=== PATIENT | male | born 1995 | race Caucasian/White ===

== ENCOUNTER 2021-01-25 10:24 | Emergency (ER) | payer BC, SELFPAY ==
--- NOTE | ~2021-01-25 | XR_ITS ---
EXAMINATION: XR chest 2V DATE: 01/25/2021 12:53 INDICATION: Cough and congestion. TECHNIQUE: Frontal and lateral views of the chest were obtained. COMPARISON: None. FINDINGS: The chest demonstrates clear lungs without pneumonia, pleural effusion, or pneumothorax. Th e heart size is normal. IMPRESSION: 1. No acute cardiopulmonary disease. Reviewed, dictated and finalized at location B.
[2021-01-25 10:37] VITALS: BP 152/110; PULSE 97; RESP 16; TEMP 35.8; O2SAT 99
--- NOTE | 2021-01-25 11:02 | ED.URI ---
HPI - URI/Sore Throat General Chief Complaint: Upper Respiratory Infection Stated Complaint: multiple complaints Time Seen by Provider: 01/25/21 11:02 Source: patient Mode of arrival: ambulatory Limitations: no limitations History of Present Illness HPI Narrative: Patient is a 25-year-old male with a history of asthma who presents for evaluation of shortness of breath. Patient states he has been wheezing and coughing over the past 24 to 48 hours. He states it feels typical to prior asthma exacerbations. He denies fever, chills, rhinorrhea or sore throat. He reports mild, dry cough. No loss of sense of taste or smell. No abdominal pain or diarrhea. No chest pain. No history of Covid. No recent sick exposures. Patient does not currently have any prescriptions for inhalers. Related Data Allergies Allergy/AdvReac Type Severity Reaction Status Date / Time Wasp Allergy Mild LOCALIZED Uncoded 01/25/21 10:53 SWELLING Review of Systems Review of Systems: Narrative: CONSTITUTIONAL: Denies fever, chills, or sweats. EYES: Denies visual changes, redness, or discharge. ENT: Denies rhinorrhea, congestion, sore throat or otalgia CARDIOVASCULAR: Denies chest pain, palpitations, or edema. RESPIRATORY: Reports dry cough and shortness of breath, reports wheezing GASTROINTESTINAL: Denies abdominal pain, nausea, vomiting, or diarrhea. GENITOURINARY: Denies dysuria or hematuria. SKIN: Denies rash or itching. MUSCULOSKELETAL: Denies back pain, joint pain, or myalgia. NEUROLOGIC: Denies headache, numbness, or weakness. [facility] Social History Social History (Updated 01/25/21 @ 12:55 by Kathleen Momin MD) Smoking status: Current every day smoker Tobacco type: cigarettes Substance use: never Gender identity (if verbalized by the patient): Male Exam Narrative: Exam Narrative: GENERAL: Awake, alert, conversant HEAD: Normocephalic, atraumatic. EYES: PERRLA and EOMI. ENT: Nares clear, no rhinorrhea or epistaxis. Mucous membranes moist. NECK: Supple. CHEST: No respiratory distress, breathing even and non labored, expiratory wheezing bilateral middle and lower lobes, mildly coarse breath sounds, no crackles HEART: Regular rate, sinus rhythm ABDOMEN:Non distended, non tender EXTREMITIES: Normal range of motion. No edema. SKIN: Warm, dry, no rash. NEURO:No focal deficits. Alert and oriented x3 Course Vital Signs Vital signs: Vital Signs Temperature 35.8 C L 01/25/21 10:37 Pulse Rate 97 01/25/21 10:37 Respiratory Rate 16 01/25/21 10:37 Blood Pressure 152/110 H 01/25/21 10:37 Pulse Oximetry 99 01/25/21 10:37 Temperature 35.8 C L 01/25/21 10:37 Pulse Rate 97 01/25/21 10:37 Respiratory Rate 16 01/25/21 10:37 Blood Pressure 152/110 H 01/25/21 10:37 Pulse Oximetry 99 01/25/21 10:37 MDM - URI/Sore Throat MDM Narrative Medical decision making narrative: Patient presented for evaluation of cough, wheezing. At the time of assessment, ABCs are intact and vital signs are stable. Patient does have expiratory wheezing on exam without increased work of breathing. Strep swab is negative. Covid swab pending. Chest x-ray shows no acute cardiopulmonary abnormality and no evidence of pneumonia. Patient will be given inhaler, given a dose of steroids here. Discharged home advised to use inhaler as scheduled as well as scheduled steroids to help with wheezing. Likely viral illness precipitating asthma exacerbation. No need for antibiotics given no pneumonia or other infectious type symptoms. Differential Diagnosis Differential diagnosis: Likely upper respiratory infection, sinusitis, viral infection and other (Asthma exacerbation) Medical Records Attestation: I reviewed the patient's medical records. Lab Data Labs: Strep Screen Presumptive Negative *(Reference Range: Negative)* Imaging Data Radiologist's impression: ITS Impressions Chest X-
[2021-01-25] MEDS: predniSONE 20 MG TABLET 40 MG PO (13:41)
[2021-01-25] MEDS: ALBUTEROL SULFATE (*SP) AEROSOL 1 PUFF 2 PUFF INHALATION (14:04)
[2021-01-25 14:10] VITALS: BP 135/86; PULSE 100; RESP 16; O2SAT 98
[2021-01-25 23:43] LABS: SARS-CoV-2 RNA PCR Negative
== END 2021-01-25 14:49 | disposition home or self-care (01) ==
PROVIDERS: Emergency Provider Emergency Medicine; PCP Family Medicine
DX: J06.9 Acute upper respiratory infection, unspecified (principal); J45.909 Unspecified asthma, uncomplicated; Z20.822 Contact with and (suspected) exposure to COVID-19; F17.210 Nicotine dependence, cigarettes, uncomplicated
CPT/HCPCS: 71046; 87081; 87880; 99283; A9270; C9803; J7512; U0003; U0005

== ENCOUNTER 2021-01-26 19:05 | Emergency (ER) | payer BC, SELFPAY ==
[2021-01-26 19:14] VITALS: BP 170/74; PULSE 89; RESP 18; TEMP 36.1; O2SAT 100
[2021-01-26] MEDS: CYCLOBENZAPRINE HCL 10 MG TABLET PO (19:35)
--- NOTE | 2021-01-26 19:41 | ED.GENADULT ---
HPI - General Adult General Chief complaint: Back Pain/Injury Stated complaint: lower back pain Time Seen by Provider: 01/26/21 19:23 Source: RN notes reviewed History of Present Illness HPI narrative: Patient presents to emergency department from home for back pain. Patient states that last night he slept on his couch which he states is not in great shape he states that he has had lower back pain since that time that is worse with movement and will catch on him with a spasming pain in his back he denies having any fevers or chills chest pain shortness of breath abdominal pain nausea or vomiting, numbness or tingling in extremities bowel or bladder incontinence or any other symptoms states he took ibuprofen 30 minutes prior to arrival Related Data Allergies Allergy/AdvReac Type Severity Reaction Status Date / Time Wasp Allergy Mild LOCALIZED Uncoded 01/26/21 19:17 SWELLING Review of Systems Review of Systems: Narrative: Gen.: Denies fevers or chills Eyes: Denies eye pain or visual change ENT: Denies congestion Respiratory: Denies shortness of breath or cough CV: Denies chest pain or palpitations GI: Denies abdominal pain nausea, emesis or diarrhea denies burning, urgency, frequency or hematuria denies incontinence Musculoskeletal: See HPI Neuro: Denies numbness, tingling, weakness or focal weakness Skin: Denies rash Except as documented, all other systems reviewed and negative [facility] Past Medical History Medical History (Updated 01/26/21 @ 19:44 by Pankaj Gordon DO) Asthma Social History Social History Smoking status: Current every day smoker Tobacco type: cigarettes Substance use: never Gender identity (if verbalized by the patient): Male Sexual Orientation (if Verbalized by the Patient): Straight or Heterosexual Exam Narrative: Exam Narrative: APPEARANCE: No acute distress, nontoxic, resting in bed Eyes: EOMI HEENT: Normocephalic, atraumatic, CV: Regular rate and rhythm without murmur RESPIRATORY: No respiratory distress. Clear to auscultation bilaterally. Abdomen: Soft and nontender, no rebound or guarding MUSCULOSKELETAl: Moves all extremities, no clubbing cyanosis or edema Back: No midline lumbar tenderness to palpation or step-off, tender to palpation over bilateral paravertebral muscles L3-5 , pain increased with forward flexion NEURO: Awake and alert. Following commands, speech normal, no focal deficits, muscle strength 5 out of 5 bilateral lower extremities, bilateral patellar reflex 2+ SKIN:: Warm, dry. Normal Color no rash or lesions Course Course Emergency Course: Discussed with patient results of workup and diagnosis. Discussed need for follow-up with primary care, proper use of medication, and reasons to return to the emergency department. Patient understands and agrees to current treatment plan Vital Signs Vital signs: Vital Signs Temperature 97.0 F L 01/26/21 19:14 Pulse Rate 89 01/26/21 19:14 Respiratory Rate 18 01/26/21 19:14 Blood Pressure 170/74 H 01/26/21 19:14 Pulse Oximetry 100 01/26/21 19:14 Temperature 97.0 F L 01/26/21 19:14 Pulse Rate 89 01/26/21 19:14 Respiratory Rate 18 01/26/21 19:14 Blood Pressure 170/74 H 01/26/21 19:14 Pulse Oximetry 100 01/26/21 19:14 Medical Decision Making MDM Narrative Medical decision making narrative: Patient?s pain is positional and localized to back without signs of cord compression or cauda equina. Normal nuerologic exams. No fever noted and no significant risk factors for osteomyelitis or spinal epidural abscess. No symptoms or signs to suggest pain is referred from abdominal or source. There are no pulsatile masses to exam. Patient ambulates with a steady gait and is felt to be up reasonable candidate for continued outpatient management Vital Signs Vital Signs: Vital Signs Temperature 97.0 F L 01/26/21 19:14 Pulse Rate 89 01/26
[2021-01-26 19:50] VITALS: BP 132/76; PULSE 78; RESP 18; O2SAT 99
== END 2021-01-26 19:51 | disposition home or self-care (01) ==
PROVIDERS: Emergency Provider Emergency Medicine; PCP Emergency Medicine
DX: M54.5 Low back pain (principal); J45.909 Unspecified asthma, uncomplicated; F17.210 Nicotine dependence, cigarettes, uncomplicated
CPT/HCPCS: 99283; A9270

== ENCOUNTER 2021-01-28 16:37 | Emergency (ER) | payer BC, SELFPAY ==
[2021-01-28 17:41] VITALS: BP 142/80; PULSE 88; RESP 16; TEMP 36.6; O2SAT 100
--- NOTE | 2021-01-28 19:08 | PC.NURSE ---
no answer when called for room at 1848 and 1900. was seen in triage
== END 2021-01-28 19:00 | disposition left against medical advice (07) ==
PROVIDERS: PCP Emergency Medicine
DX: M54.9 Dorsalgia, unspecified (principal)
CPT/HCPCS: 99199

== ENCOUNTER 2021-02-09 21:53 | Emergency (ER) | payer OTHER, BC, SELFPAY ==
--- NOTE | ~2021-02-09 | XR_ITS ---
EXAMINATION: XR finger 1st LT min 2V DATE: 02/09/2021 22:36 INDICATION: Left thumb foreign body. TECHNIQUE: 3 views of left thumb were obtained. COMPARISON: Left wrist radiographs 07/03/2006 FINDINGS: Bone alignment is normal. No fracture. Joint spaces are normal. There is a thin 3 mm radiop aque foreign body at the palmar aspect of the thumb. IMPRESSION: 1. Thin 3 mm radiopaque foreign body at the palmar aspect of the thumb. Reviewed, dictated and finalized at location A.
[2021-02-09 22:20] VITALS: BP 145/83; PULSE 76; RESP 18; TEMP 36.2; O2SAT 100
--- NOTE | 2021-02-09 23:58 | ED.UPPEXIN ---
HPI - Extremity Injury (Upper) General Chief Complaint: Extremity Injury, Upper Stated Complaint: metal piece in thumb, hand pain Time Seen by Provider: 02/09/21 22:26 History of Present Illness HPI narrative: Patient is a 25-year-old male who presents ER with left thumb pain. 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 Reports there is a small splinter in there that he cannot remove. Went home and today his thumb/hand was more swollen and has increased difficulty making a fist. No redness or drainage. No fevers or chills or sweats. Related Data Allergies Allergy/AdvReac Type Severity Reaction Status Date / Time Wasp Allergy Mild LOCALIZED Uncoded 02/09/21 22:23 SWELLING Review of Systems Review of Systems: All systems reviewed & are unremarkable except as noted in HPI and below Constitutional: Constitutional: Denies chills, Denies fever(s) and Denies weakness Musculoskeletal: Comments: Thumb pain and swelling Neurologic: Denies focal weakness and Denies numbness PMFSH Past Medical History Medical History (Updated 02/09/21 @ 23:59 by Cipriano Cobian MD) Asthma Social History Social History Smoking status: Current every day smoker Tobacco type: cigarettes Substance use: never Gender identity (if verbalized by the patient): Male Exam Narrative: Exam Narrative: GENERAL: Well-appearing, well-nourished, and in no acute distress. HEAD: Normocephalic, atraumatic. HEART: Regular rate and rhythm. Normal peripheral pulses. EXTREMITIES: Normal range of motion. Mild swelling to the left thumb with foreign body just distal to the DIP. SKIN: Warm, dry, no rash. NEURO: Alert and oriented x3. PSYCH: Normal mood and affect. Course Course Emergency Course: When foreign body removed there is a small bead of pus. No additional infection could be squeezed of the thumb. Will place on antibiotics. Tetanus shot is up-to-date per patient. Vital Signs Vital signs: Vital Signs Temperature 97.2 F L 02/09/21 22:20 Pulse Rate 76 02/09/21 22:20 Respiratory Rate 18 02/09/21 22:20 Blood Pressure 145/83 H 02/09/21 22:20 Pulse Oximetry 100 02/09/21 22:20 Temperature 97.2 F L 02/09/21 22:20 Pulse Rate 76 02/09/21 22:20 Respiratory Rate 18 02/09/21 22:20 Blood Pressure 145/83 H 02/09/21 22:20 Pulse Oximetry 100 02/09/21 22:20 Procedures Foreign Body Removal Foreign Body #1: Foreign Body Removal Date: 02/09/21 Foreign Body Removal Time: 11:50 Site: left and other (thumb) Description of foreign body: other (metal splinter) Sedation/Analgesia: none Technique: incision made to facilitate removal Confirmed by:: direct visualization Complications: none Discharge Plan Discharge Clinical Impression: Foreign body finger, Abscess of left thumb Patient Disposition: Home, Self-Care Condition: Stable Instructions: Antibiotic Form, Abscess (ED) Additional Instructions: You had a small metal foreign body in the superficial skin of your thumb. It was removed and there was a scant amount of pus. You have been started on antibiotic to treat infection. Soak your thumb and try to express any additional pus. Return to the ER if he had red streaking up your arm, you have fever over 100.4 ?F, or you have a red swollen foot thumb that cannot bend. Prescriptions: New doxycycline monohydrate 100 mg capsule 100 mg PO BID Qty: 14 RF: 0 Follow-up/Referrals: PHYSICIAN,TRAINING REPRESENTATIVE [Primary Care Provider] - Randy Kiran MD [Physician] - 1 Week Stand Alone Forms: Work/School Release IP
[2021-02-10] MEDS: DOXYCYCLINE HYCLATE 100 MG TABLET PO (00:01)
[2021-02-10 00:04] VITALS: BP 138/84; PULSE 74; RESP 16; O2SAT 98
== END 2021-02-10 00:05 | disposition home or self-care (01) ==
PROVIDERS: Emergency Provider Emergency Medicine
DX: S60.352A Superficial foreign body of left thumb, initial encounter (principal); J45.909 Unspecified asthma, uncomplicated; F17.210 Nicotine dependence, cigarettes, uncomplicated; W45.8XXA Other foreign body or object entering through skin, initial encounter
CPT/HCPCS: 10120; 73140; 99283; A9270

== ENCOUNTER 2021-08-12 07:05 | Emergency (ER) | payer OTHER, BC, SELFPAY ==
[2021-08-12 07:11] VITALS: BP 178/106; PULSE 114; RESP 16; TEMP 36.9; O2SAT 100
--- NOTE | 2021-08-12 07:29 | ED.GENADULT ---
HPI - General Adult General Chief complaint: Upper Respiratory Infection Stated complaint: flu-work note Time Seen by Provider: 08/12/21 07:10 History of Present Illness HPI narrative: Patient is a 26-year-old male who presents to the ER in search of a work note. Patient reports he missed work the last 2 days because he had diarrhea 1 day and then he started having sinus congestion another day. Is felt some mild fatigue. No fevers or chills or sweats. No loss of taste or smell. He would also like his left big toe evaluated because he has an ingrown toenail. Toenail has been worsening over the last month. No drainage or redness. He is able to ambulate. Related Data Home Medications Medication Instructions Recorded Confirmed No Home Medications 08/12/21 08/12/21 Allergies Allergy/AdvReac Type Severity Reaction Status Date / Time No Known Allergies Allergy Verified 08/12/21 07:15 Review of Systems Review of Systems: All systems reviewed & are unremarkable except as noted in HPI and below Constitutional: Constitutional: Denies chills and Denies fever(s) ENT: Reports nasal congestion and Denies sore throat Respiratory: Respiratory: Denies cough, Denies dyspnea and Denies wheezing Gastrointestinal: Gastrointestinal: Denies abdominal pain, Reports diarrhea (Resolved), Denies nausea and Denies vomiting Musculoskeletal: Comments: Ingrown toenail left great toe. PMFSH Past Medical History Medical History (Updated 08/12/21 @ 07:40 by Cipriano Cobian MD) Asthma Social History Social History Smoking status: Current every day smoker Tobacco type: cigarettes Substance use: never Gender identity (if verbalized by the patient): Male Sexual Orientation (if Verbalized by the Patient): Straight or Heterosexual Exam Narrative: GENERAL: Well-appearing, well-nourished, and in no acute distress. HEAD: Normocephalic, atraumatic. CHEST: Clear to auscultation. No respiratory distress. HEART: Regular rate and rhythm. Normal peripheral pulses. EXTREMITIES: Normal range of motion. No edema. Ingrown toenail left great toe without drainage or abscess formation. No lymphangitic streaking. NEURO: Alert and oriented x3. PSYCH: Normal mood and affect. Course Course Emergency Course: Discussed with patient that his blood pressure is elevated and he needs to obtain a primary care physician for further evaluation. We will also give him the name of a oven unloader who can remove his ingrown toenail. Vital Signs Vital signs: Vital Signs Temperature 98.5 F 08/12/21 07:11 Pulse Rate 114 H 08/12/21 07:11 Respiratory Rate 16 08/12/21 07:11 Blood Pressure 178/106 H 08/12/21 07:11 Pulse Oximetry 100 08/12/21 07:11 Temperature 98.5 F 08/12/21 07:11 Pulse Rate 114 H 08/12/21 07:11 Respiratory Rate 16 08/12/21 07:11 Blood Pressure 178/106 H 08/12/21 07:11 Pulse Oximetry 100 08/12/21 07:11 Medical Decision Making Vital Signs Vital Signs: Vital Signs Temperature 98.5 F 08/12/21 07:11 Pulse Rate 114 H 08/12/21 07:11 Respiratory Rate 16 08/12/21 07:11 Blood Pressure 178/106 H 08/12/21 07:11 Pulse Oximetry 100 08/12/21 07:11 Temperature 98.5 F 08/12/21 07:11 Pulse Rate 114 H 08/12/21 07:11 Respiratory Rate 16 08/12/21 07:11 Blood Pressure 178/106 H 08/12/21 07:11 Pulse Oximetry 100 08/12/21 07:11 Discharge Plan Discharge Clinical Impression: Upper respiratory infection, Ingrowing toenail of left foot Patient Disposition: Home, Self-Care Condition: Stable Instructions: Ingrown Nail (ED), Cold Symptoms (ED) Additional Instructions: Return to ER if you cannot breathe, you cannot swallow, you have chest pain or shortness of breath, you have additional concerns. Follow-up with your primary care doctor in regards to an elevated blood pressure reading that you had in the ER. Additionall
== END 2021-08-12 07:47 | disposition home or self-care (01) ==
PROVIDERS: Emergency Provider Emergency Medicine
DX: J06.9 Acute upper respiratory infection, unspecified (principal); L60.0 Ingrowing nail; J45.909 Unspecified asthma, uncomplicated; F17.210 Nicotine dependence, cigarettes, uncomplicated; R03.0 Elevated blood-pressure reading, without diagnosis of hypertension
CPT/HCPCS: 99281

== ENCOUNTER 2021-12-26 05:47 | Emergency (ER) | payer BC, SELFPAY ==
[2021-12-26 05:52] VITALS: BP 178/93; PULSE 85; RESP 20; TEMP 37.1; O2SAT 100
[2021-12-26] MEDS: AMOXICILLIN/CLAVULANATE K 875-125 MG TAB 1 TABLET PO (06:18)
--- NOTE | 2021-12-26 06:22 | ED.DENTAL ---
HPI - Dental/Oral General Chief complaint: Dental/Oral Stated complaint: right upper tooth abcess Time Seen by Provider: 12/26/21 05:59 Source: patient, family and RN notes reviewed Mode of arrival: ambulatory Limitations: no limitations History of Present Illness HPI Narrative: 26-year-old male with poor dentition presents emerged department for evaluation of dental pain and right-sided facial swelling. Patient states over the course of the last few days he has had worsening pain. Patient states this morning when he woke up he did have right-sided facial swelling. Patient denies any significant pain at this time. Patient denies any difficulty breathing or swallowing. Patient does have a significant history of poor dentition. Patient does not have dental follow-up and patient does not have health insurance. Related Data Allergies Allergy/AdvReac Type Severity Reaction Status Date / Time No Known Allergies Allergy Verified 12/26/21 05:56 Review of Systems Review of Systems: CONSTITUTIONAL: Denies fever, chills, or sweats. EYES: Denies visual changes, redness, or discharge. ENT: Dental pain and facial swelling. CARDIOVASCULAR: Denies chest pain, palpitations, or edema. RESPIRATORY: Denies cough or dyspnea. GASTROINTESTINAL: Denies abdominal pain, nausea, vomiting, or diarrhea. GENITOURINARY: Denies dysuria or hematuria. SKIN: Denies rash or itching. MUSCULOSKELETAL: Denies back pain, joint pain, or myalgia. NEUROLOGIC: Denies headache, numbness, or weakness. [facility] Past Medical History Medical History (Updated 12/26/21 @ 06:18 by Calvin Thompson MD) Asthma Social History Social History Smoking status: Current every day smoker Tobacco type: cigarettes Substance use: never Gender identity (if verbalized by the patient): Male Sexual Orientation (if Verbalized by the Patient): Straight or Heterosexual Exam Narrative: APPEARANCE: Well appearing, no pain, no distress, well-nourished. HEAD: normocephalic, atraumatic. Right-sided facial swelling EYES: PERRLA/EOMI, conjunctivae clear. NOSE: Normal no drainage EARS:TMS clear with good light reflex. THROAT: Pharynx clear, no exudate. No visualized abscess. Poor dentition NECK: Supple. No adenopathy, no masses. RESPIRATORY: Airway patent, respirations nonlabored. Clear to auscultation bilaterally, no rales, rhonchi, wheezing. CARDIOVASCULAR: Regular rate and rhythm without murmurs rubs or gallops. Course Course Emergency Course: Patient was started on antibiotics in the ED. Patient was discharged home with Augmentin. Patient was given information on possible dental follow-up options including esmer. Patient and family were comfortable with the plan for discharge and close follow-up. Vital Signs Vital signs: Vital Signs Temperature 98.8 F 12/26/21 05:52 Pulse Rate 85 12/26/21 05:52 Respiratory Rate 20 12/26/21 05:52 Blood Pressure 178/93 H 12/26/21 05:52 Pulse Oximetry 100 12/26/21 05:52 Temperature 98.8 F 12/26/21 05:52 Pulse Rate 85 12/26/21 05:52 Respiratory Rate 20 12/26/21 05:52 Blood Pressure 178/93 H 12/26/21 05:52 Pulse Oximetry 100 12/26/21 05:52 Discharge Plan Discharge Clinical Impression: Facial swelling, Dental caries Patient Disposition: Home, Self-Care Condition: Stable Instructions: Antibiotic Form, Toothache (ED) Additional Instructions: Antibiotics as directed until completed. Have close follow-up with a dentist. If you have any worsening symptoms then please call or return to the emergency department. Prescriptions: New amoxicillin-pot clavulanate 875-125 mg tablet 1 tablet PO Q12H Qty: 20 RF: 0 Follow-up/Referrals: PHYSICIAN,DIRECTOR OF PRODUCT DEVELOPMENT [Primary Care Provider] - Stand Alone Forms: Work/School Release IP
== END 2021-12-26 07:01 | disposition home or self-care (01) ==
PROVIDERS: Emergency Provider Emergency Medicine
DX: K02.9 Dental caries, unspecified (principal); J45.909 Unspecified asthma, uncomplicated; F17.210 Nicotine dependence, cigarettes, uncomplicated
CPT/HCPCS: 99283; A9270

== ENCOUNTER 2023-01-22 12:51 | Emergency (ER) | payer BC, SELFPAY ==
[2023-01-22 12:54] VITALS: BP 169/83; PULSE 77; RESP 16; TEMP 36.6; O2SAT 99
[2023-01-22 12:58] VITALS: BP 158/90; PULSE 79; RESP 18; TEMP 36.4; O2SAT 100
--- NOTE | 2023-01-22 13:04 | ED.DENTAL ---
HPI - Dental/Oral General Chief complaint: Dental/Oral Stated complaint: facial swelling Time Seen by Provider: 01/22/23 12:54 Source: patient Mode of arrival: ambulatory Limitations: no limitations History of Present Illness HPI Narrative: This is a 27-year-old male presents the ED with chief complaint of right-sided facial swelling and upper dental pain. Patient states this has been going on for several weeks. Reports the swelling is worse in the last couple of days. Reports pain is limited to the right upper dental area. He has tried ibuprofen at home with minimal relief. Denies fevers, chills, nausea, vomiting, trismus, drooling. Related Data Allergies Allergy/AdvReac Type Severity Reaction Status Date / Time No Known Allergies Allergy Verified 01/22/23 13:03 Review of Systems Review of Systems: CONSTITUTIONAL: Denies fever, chills, or sweats. EYES: Denies visual changes, redness, or discharge. ENT: See HPI CARDIOVASCULAR: Denies chest pain, palpitations, or edema. RESPIRATORY: Denies cough or dyspnea. GASTROINTESTINAL: Denies abdominal pain, nausea, vomiting, or diarrhea. GENITOURINARY: Denies dysuria or hematuria. SKIN: Endorses right-sided facial swelling. Denies rash or itching. MUSCULOSKELETAL: Denies back pain, joint pain, or myalgia. NEUROLOGIC: Denies headache, numbness, dizziness, or weakness. PSYCHIATRIC: Denies anxiety or depression. [facility] Past Medical History Medical History (Updated 01/22/23 @ 13:26 by Ladarius Mar PA-C) Asthma Social History Social History Smoking status: Current every day smoker Tobacco type: cigarettes Substance use: never Gender identity (if verbalized by the patient): Male Sexual Orientation (if Verbalized by the Patient): Straight or Heterosexual Exam Narrative: GENERAL: Well-appearing, well-nourished, and in no acute distress. HEAD: Normocephalic, atraumatic. EYES: PERRLA and EOMI. ENT: Nares clear, no rhinorrhea or epistaxis. Mucous membranes moist. Oropharynx without tonsillar hypertrophy exudate or other lesions. Floor of the mouth intact. Poor dentition. Several caries noted. Several teeth missing. Premolar dental abscess noted. No trismus or drooling. Facial swelling noted, however there is no periorbital swelling. No overt skin changes. NECK: Supple. No adenopathy or masses. CHEST: No respiratory distress. Clear to auscultation. No wheezes rales or rhonchi HEART: Regular rate and rhythm. No murmur heard. Normal peripheral pulses. ABDOMEN: Soft, nontender, nondistended, normal active bowel sounds. EXTREMITIES: Normal range of motion. No edema. SKIN: Warm, dry, no rash. NEURO: Alert and oriented x3. No focal deficits. PSYCH: Normal mood and affect. Course Vital Signs Vital signs: Vital Signs Temperature 97.9 F 01/22/23 12:54 Pulse Rate 77 01/22/23 12:54 Respiratory Rate 16 01/22/23 12:54 Blood Pressure 169/83 H 01/22/23 12:54 Pulse Oximetry 99 01/22/23 12:54 Oxygen Delivery Room Air 01/22/23 12:54 Temperature 97.6 F 01/22/23 12:58 Pulse Rate 79 01/22/23 12:58 Respiratory Rate 18 01/22/23 12:58 Blood Pressure 158/90 H 01/22/23 12:58 Pulse Oximetry 100 01/22/23 12:58 Oxygen Delivery Room Air 01/22/23 12:58 MDM - Dental/Oral MDM Narrative Medical decision making narrative: This is a 27-year-old male presenting to the ED with chief complaint of a dental infection and facial swelling. Vitals are stable. Afebrile. Exam shows very poor dentition. Patient is aware that he needs to see a dentist, he is telling me that he will be able to get into one soon since he got a new job. I reinforced that these problems will not get better until he starts to see a regular dentist. Given a prescription for Augmentin for possible infection. He received this 2 months ago for the same symptoms and feels that he got much better after that. He is stable f
== END 2023-01-22 13:43 | disposition home or self-care (01) ==
PROVIDERS: Emergency Provider Physician Assistant
DX: K04.7 Periapical abscess without sinus (principal); K02.9 Dental caries, unspecified; J45.909 Unspecified asthma, uncomplicated; F17.210 Nicotine dependence, cigarettes, uncomplicated
CPT/HCPCS: 99283

== ENCOUNTER 2025-01-07 02:02 | Emergency (ER) | payer BC, SELFPAY ==
--- NOTE | ~2025-01-07 | XR_ITS ---
Portable chest x-ray Comparison: 01/25/2021 Clinical History: Nausea, vomiting, pain Findings: Lungs are clear, without focal consolidation or pleural effusion. Cardiomediastinal silho uette is stable. Bones and soft tissues are unremarkable. Impression: Normal chest. Reviewed, dictated and finalized at location . Impression: Normal chest.
--- NOTE | ~2025-01-07 | CT_ITS ---
CT of the Abdomen and Pelvis: Indication: Abdominal pain Technique: 2.5 mm axial scans were obtained through the abdomen and pelvis following intravenous adm inistration of 100 cc of Omnipaque 350. Dose reduction technique was used on this scan by utilizing a utomated exposure control and iterative reconstruction technique. The dose-length product (DLP) was 1 595.04 mGy-cm. Findings: Scans through the lung bases are unremarkable. The liver, spleen, pancreas, gallbladder, adrenals and kidneys are within normal limits. No evidence of aortic aneurysm. No lymphadenopathy. No bowel obstruction or bowel wall thickening. There is no evidence to suggest acute appendicitis. Images through the pelvis were performed. Urinary bladder unremarkable. No pelvic mass seen. No ascit es. Impression: No significant abnormalities seen. Reviewed, dictated and finalized at location . Impression: No significant abnormalities seen.
--- OUTSIDE RECORDS SUMMARY | 2025-01-07 02:04 | XMS_ITS | Clinical Summary ---
Author Organization [facility] [employer] Address [address] [facility] [address] Care Team Providers Care Ncr Operator Name Role Phone Unavailable Primary Care Provider Unavailabl e Source Comments [facility] [employer],non-owned Affiliates and Associated Physician Practices is amultiple site organization consisting of ambulatory clinics and hospital sitesin [place], [place], [place] and [place]. This disclosure is being madepursuant to the Care Everywhere program and may not contain all information available regarding this patient. Last updated 18.[facility] [employer] Social History Tobacco Use Types Packs/Day Years Used Date Smoking Tobacco: Never Assessed Sex and Gender Information Value Date Recorded Sex Assigned at Not on file Gender Identity Not on file Sexual Orientation Not on file Plan of Treatment Health Maintenance Due Date Last Done Comments HIV SCREENING 2010 HEPATITIS C SCREENING 06/14/2013 DTAP/TDAP/TD VACCINES (1 - Tdap) 2014 HEPATITIS B VACCINE (1 of 3 - 19+ 3-dose series) 2014 COVID-19 VACCINE ( - 2023-2 5 season) 2024 INFLUENZA VACCINE (#1) 2024 DEPRESSION SCREENING 10/08/2024 ZOSTER VACCINE (1 of 2) 2045 HIB VACCINE Aged Out No longer eligi ble based on patient's age to complete this topic HPV VACCINE Aged Out No longer eligi ble based on patient's age to complete this topic MENINGOCOCCAL (Group B) VACC INE SHARED DECISION-MAKING Aged Out No longer eligibl e based on patient's age to complete this topic MENINGOCOCCAL GROUPS A/C/Y/W VACCINE Aged Out No longer eligible b ased on patient's age to complete this topic PNEUMOCOCCAL VACCINE Aged Out No long er eligible based on patient's age to complete this topic
--- OUTSIDE RECORDS SUMMARY | 2025-01-07 02:04 | XMS_ITS | Clinical Summary ---
Author Organization [facility] Address [address] [place] [id number] Care Team Providers Care Lobby Porter Name Role Phone Unavailable Primary Care Provider Unavailabl e Social History Tobacco Use Types Packs/Day Years Used Date Smoking Tobacco: Never Assessed Sex and Gender Information Value Date Recorded Sex Assigned at Not on file Legal Sex Male 5:54 PM CDT Gender Identity Not on file Sexual Orientation Not on file Plan of Treatment Health Maintenance Due Date Last Done Comments Annual Physical 1998 Hepatitis C 2013 DTaP, Tdap and Td Vaccines ( 1 - Tdap) 2014 Hepatitis B Vaccines (1 of 3 - 19+ 3-dose series) 2014 COVID-19 Vaccine (2023-2 5 season) 2024 HPV Vaccines Aged Out No longer eligi ble based on patient's age to complete this topic Meningococcal B Vaccine Aged Out No l onger eligible based on patient's age to complete this topic Meningococcal Vaccine Aged Out No josé miguel damaso eligible based on patient's age to complete this topic Pneumococcal Vaccine: Pediat rics (0 to 5 Years) and At-Risk Patients (6 to 64 Years) Aged Out No longer eligible b ased on patient's age to complete this topic RSV Immunizations Under 20 Months Aged Out No longer eligible based on patient's age to complete this topic
--- OUTSIDE RECORDS SUMMARY | 2025-01-07 02:04 | XMS_ITS | Clinical Summary ---
Author Organization [facility] [address] [facility] Address [address] [place] [address] Care Team Providers Care Plastic Straightening Roll Operator Name Role Phone Vivien Geronimo Primary Care Provider +1- [phone] Allergies Active Allergy Reactions Criticality Noted Date Comments Ibuprofen Hives Medium 12/09/2019 Medications No known medications Active Problems Problem Noted Date Diagnosed Date BMI 40.0-44.9, adult 12/09/2019 Assessment & Plan (12/09/2019 10:44 AM HELPER COORDINATOR): Obesity is unchanged. Discussed the patient's BMI. The BMI is above average. BMI management plan is completed. BMI Follow-up includes: nutrition counseling, exercise counseling and education provided. Morbid obesity 12/09/2019 Assessment & Plan (12/09/2019 10:44 AM HELPER COORDINATOR): Obesity is unchanged. Discussed the patient's BMI. The BMI is above average. BMI management plan is completed. BMI Follow-up includes: nutrition counseling, exercise counseling and education provided. Positive depression screening 12/09/2019 Assessment & Plan (12/09/2019 8:45 PM HELPER COORDINATOR): Diagnosis is made today. See depression for plan Cigarette smoker 12/09/2019 Assessment & Plan (12/09/2019 8:46 PM HELPER COORDINATOR): Encouraged smoking cessation. Discussed 3 minutes. Reviewed options for assistance with cessation. Reviewed exterminator helper termite sequela associated with smoking. Pt declines assistance at this time but may contact the office at anytime for further help as they desire. Annual physical exam 12/09/2019 Assessment & Plan (12/09/2019 8:47 PM HELPER COORDINATOR): Encouraged healthy lifestyle, good nutrition and exercise. Encouraged Calcium and Vitamin D and weight bearing exercise for bone health. Reviewed immunizations Reviewed age appropirate screenings. Need for Tdap vaccination 12/09/2019 Assessment & Plan (12/09/2019 8:46 PM HELPER COORDINATOR): Updated in office today Moderate episode of recurrent major depressive d isorder 12/09/2019 Assessment & Plan (12/09/2019 8:46 PM HELPER COORDINATOR): Discussed treatment options including medication, counseling and exercise/diet. He would like to get labs and monitor and discuss again at his next visit. No suicidal or homicidal thoughts. Seems more situational around unemployment and custody. Lipid screening 12/09/2019 Assessment & Plan (12/09/2019 8:47 PM HELPER COORDINATOR): Check labs Diabetes mellitus screening 12/09/2019 Assessment & Plan (12/09/2019 8:47 PM HELPER COORDINATOR): Check labs Other fatigue 12/09/2019 Assessment & Plan (12/09/2019 8:47 PM HELPER COORDINATOR): Probably multifactorial. Check labs and followup to re-evaluate Immunizations Immunization Administration Dates Next Due Influenza, Unspecified 12/09/2019(Deferred: Justine ent Refused) Tdap 12/09/2019 Surgical History Surgery Date Site/Laterality Comments EYE SURGERY Family History Medical History Relation Name Comments Heart disease Father Hypertension Father Stroke Mother Thyroid disease Sister Relation Name Status Comments Father Mother Sister Social History Tobacco Use Types Packs/Day Years Used Date Smoking Tobacco: Every Day Smokeless Tobacco: Never Tobacco Cessation:Ready to Q uit: No; Counseling Given: Yes Alcohol Use Standard Drinks/Week Comments Never 0 (1 standard drink = 0.6 oz pur e alcohol) AUDIT-C Answer Date Recorded Q1: How often do you have a drink containing alc ohol? 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 Obstetrics History Last Filed Vital Signs Vital Sign Reading Time Taken Comments Blood Pressure 136/78 12/09/2019 10:40 AM HELPER COORDINATOR Pulse 90 12/09/2019 10:40 AM HELPER COORDINATOR Temperature 37 C (98.6 F) 12/09/2019 10:40 AM HELPER COORDINATOR Respiratory Rate - - Oxygen Saturation 97% 12/09/2019 10: 40 AM HELPER COORDINATOR Inhaled Oxygen Concentration - - Weight 126.3 kg (278 lb 6.4 oz) 020 10:40 AM HELPER COORDINATOR Height 171.5 cm (5' 7.5 ) 12/09/2019 10 :40 AM HELPER COORDINATOR Body Mass Index 42.96 12/09/2019 10:40 AM HELPER COORDINATOR Plan of Treatment Not on file Insurance [facility] [place] [id number] Care Teams Plastic Straightening Roll Operator Relationship Specialty Start Date End Date Vivien Geronimo PA [address] [facility] [address] [place] [address] PCP - General Internal Medicine 09/09/19
--- OUTSIDE RECORDS SUMMARY | 2025-01-07 02:04 | XMS_ITS | Referral Summary ---
Author Organization [facility] [address] [facility] Address [address] [place] [address] Care Team Providers Care Plating Operator Name Role Phone Vivien Geronimo Primary Care Provider +1- [phone] Allergies Active Allergy Reactions Criticality Noted Date Comments Ibuprofen Hives Medium 12/09/2019 Medications No known medications Active Problems Problem Noted Date Diagnosed Date BMI 40.0-44.9, adult 12/09/2019 Assessment & Plan (12/09/2019 10:44 AM ENVIRONMENTAL MANAGER): Obesity is unchanged. Discussed the patient's BMI. The BMI is above average. BMI management plan is completed. BMI Follow-up includes: nutrition counseling, exercise counseling and education provided. Morbid obesity 12/09/2019 Assessment & Plan (12/09/2019 10:44 AM ENVIRONMENTAL MANAGER): Obesity is unchanged. Discussed the patient's BMI. The BMI is above average. BMI management plan is completed. BMI Follow-up includes: nutrition counseling, exercise counseling and education provided. Positive depression screening 12/09/2019 Assessment & Plan (12/09/2019 8:45 PM ENVIRONMENTAL MANAGER): Diagnosis is made today. See depression for plan Cigarette smoker 12/09/2019 Assessment & Plan (12/09/2019 8:46 PM ENVIRONMENTAL MANAGER): Encouraged smoking cessation. Discussed 3 minutes. Reviewed options for assistance with cessation. Reviewed intermediate manager sequela associated with smoking. Pt declines assistance at this time but may contact the office at anytime for further help as they desire. Annual physical exam 12/09/2019 Assessment & Plan (12/09/2019 8:47 PM ENVIRONMENTAL MANAGER): Encouraged healthy lifestyle, good nutrition and exercise. Encouraged Calcium and Vitamin D and weight bearing exercise for bone health. Reviewed immunizations Reviewed age appropirate screenings. Need for Tdap vaccination 12/09/2019 Assessment & Plan (12/09/2019 8:46 PM ENVIRONMENTAL MANAGER): Updated in office today Moderate episode of recurrent major depressive d isorder 12/09/2019 Assessment & Plan (12/09/2019 8:46 PM ENVIRONMENTAL MANAGER): Discussed treatment options including medication, counseling and exercise/diet. He would like to get labs and monitor and discuss again at his next visit. No suicidal or homicidal thoughts. Seems more situational around unemployment and custody. Lipid screening 12/09/2019 Assessment & Plan (12/09/2019 8:47 PM ENVIRONMENTAL MANAGER): Check labs Diabetes mellitus screening 12/09/2019 Assessment & Plan (12/09/2019 8:47 PM ENVIRONMENTAL MANAGER): Check labs Other fatigue 12/09/2019 Assessment & Plan (12/09/2019 8:47 PM ENVIRONMENTAL MANAGER): Probably multifactorial. 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 Last Filed Vital Signs Vital Sign Reading Time Taken Comments Blood Pressure 136/78 12/09/2019 10:40 AM ENVIRONMENTAL MANAGER Pulse 90 12/09/2019 10:40 AM ENVIRONMENTAL MANAGER Temperature 37 C (98.6 F) 12/09/2019 10:40 AM ENVIRONMENTAL MANAGER Respiratory Rate - - Oxygen Saturation 97% 12/09/2019 10: 40 AM ENVIRONMENTAL MANAGER Inhaled Oxygen Concentration - - Weight 126.3 kg (278 lb 6.4 oz) 020 10:40 AM ENVIRONMENTAL MANAGER Height 171.5 cm (5' 7.5 ) 12/09/2019 10 :40 AM ENVIRONMENTAL MANAGER Body Mass Index 42.96 12/09/2019 10:40 AM ENVIRONMENTAL MANAGER Plan of Treatment Not on file Insurance [facility] [employer] [facility] Care Teams Plating Operator Relationship Specialty Start Date End Date Vivien Geronimo PA [address] [facility] [address] [place], [place] [id number] PCP - General Internal Medicine 09/09/19
[2025-01-07 02:06] VITALS: BP 185/95; PULSE 135; RESP 26; TEMP 36.7; O2SAT 100
--- NOTE | 2025-01-07 02:17 | ECG_ITS ---
Test Date: 2025-01-07 02:36:35 Measurements Intervals [place] Rate: 113 P: 58 MI: 128 QRS: 56 QRSD: 88 T: 27 QT: 314 QTc: 431 Interpretive Statements SINUS TACHYCARDIA POSSIBLE LEFT ATRIAL ENLARGEMENT MINIMAL Q WAVES- INFERIOR LEADS BORDERLINE ST-T WAVE ABNORMALITY- ANTEROLAT/INF LEADS BASELINE ARTIFACT- I, III, AVR, AVL, AVF, V1, V4 ABNORMAL ECG No previous ECG available for comparison Electronically Signed On 01-07-2025 06:09:47 CDT by Brice Greene D.O.
[2025-01-07 02:18] LABS: Basophils Absolute Auto 0.1 K/mm3 (0.0-0.1); Basophils Percent Auto 0.5 % (0.2-1.2); Eosinophils Percent Auto 0.2 % (0-4.4); Hematocrit 47.9 % (42.0-52.0); Hemoglobin 16.9 g/dL (14.0-18.0); Immature Granulocyte Absolute 0.08 K/mm3 (0.00-0.031); Immature Granulocyte Percent A 0.4 % (0-0.5); Lymphocytes Absolute Auto 2.27 K/mm3 (0.9-3.2); Lymphocytes Percent Auto 11.6 % (18.3-44.2); Mean Corpuscular HGB Conc 35.3 g/dl (32-36); Mean Corpuscular Hemoglobin 29.5 pg (26-34); Mean Corpuscular Volume 83.7 fl (80-100); Mean Platelet Volume 9.7 fl (7.4-10.4); Monocytes Absolute Auto 1.2 K/mm3 (0.1-0.6); Neutrophils Percent Auto 81.3 % (45.5-73.1); Platelet Count Result 474 k/mm3 (150-375); Red Blood Count 5.72 M/mm3 (4.6-6.20); Red Cell Distribution Width 13.3 % (11.5-14.5); White Blood Count 19.6 K/mm3 (4.5-10.0)
--- NOTE | 2025-01-07 02:27 | ED.NAVMDI ---
HPI - Nausea/Vomiting/Diarrhea General Chief complaint: Nausea/Vomiting/Diarrhea Stated complaint: vomiting Time Seen by Provider: 01/07/25 02:16 History of Present Illness HPI Narrative: 29-year-old otherwise healthy male with history of hypertension. He presents to the emergency department today with nausea and vomiting for several days. He states he is having burning pain in his epigastrium and associated with frequent nausea and vomiting. He states he drank some soda earlier today which extubated feel better but he is still nauseous. Denies any diarrhea or constipation. He states his vomit started yellow and then had some what appeared to be coffee-grounds after at was prolonged for last day. Denies any sloan bleeding. No history of alcohol use disorder or any alcoholism. Denies any recent alcohol intake. No history of any abdominal surgeries. He was otherwise in his normal state of health. No fever or chills. No trouble breathing, chest pain, shortness a breath, headache or vision changes. Related Data Allergies Allergy/AdvReac Type Severity Reaction Status Date / Time No Known Allergies Allergy Verified 01/07/25 02:03 Review of Systems Review of Systems: As reviewed above in HPI [facility] Past Medical History Medical History Asthma Social History Social History Smoking status: Current every day smoker Tobacco type: cigarettes Substance use: never Gender identity (if verbalized by the patient): Male Sexual Orientation (if Verbalized by the Patient): Straight or Heterosexual Exam Narrative: GENERAL: [Well-appearing, well-nourished, and in no acute distress.] HEAD: [Normocephalic, atraumatic.] EYES: [PERRLA and EOMI.] ENT: Nares clear, no rhinorrhea or epistaxis. Mucous membranes moist. NECK: Supple. CHEST: [Clear to auscultation. No respiratory distress.] HEART: Tachycardic rate, regular rhythm. No murmur heard. [Normal peripheral pulses.] ABDOMEN: [Soft, nondistended], [nontender], [No rigidity or guarding] EXTREMITIES: Normal range of motion. [No edema.] SKIN: Warm, dry, no rash. NEURO: [No focal deficits]. Alert and oriented [x3.] PSYCH: [Normal mood and affect.] Course Vital Signs Vital signs: Vital Signs Temperature 36.7 C 01/07/25 02:06 Pulse Rate 135 H 01/07/25 02:06 Respiratory Rate 26 H 01/07/25 02:06 Blood Pressure 185/95 H 01/07/25 02:06 Pulse Oximetry 100 01/07/25 02:06 Oxygen Delivery Room Air 01/07/25 02:06 Temperature 36.7 C 01/07/25 02:06 Pulse Rate 124 H 01/07/25 03:35 Respiratory Rate 15 01/07/25 03:35 Blood Pressure 141/78 H 01/07/25 03:35 Pulse Oximetry 98 01/07/25 03:35 Oxygen Delivery Room Air 01/07/25 02:06 MDM - Nausea/Vomiting/Diarrhea MDM Narrative Medical decision making narrative: 29-year-old male presenting with nausea and vomiting for several days associated with burning epigastric discomfort. Has a history of hypertension. No alcoholism or current alcohol use. Was otherwise in his normal state of health. He is slightly tachycardic, blood pressure on the elevated side but likely component of pain and retching causing his symptoms. Denies any diarrhea constipation. No chest pain shortness a breath. No fever chills. He has a soft nontender nondistended abdomen. Suspicion presently is for gastroenteritis, gastritis, peptic ulcer disease, Tawanna-Ying tear with his reported coffee-ground emesis after multiple vomiting episodes. Suspicion for intra-abdominal pathology such as pancreatitis, cholecystitis, appendicitis or also on the differential. Broad workup ordered including CBC, CMP, lipase, urinalysis. Chest x-ray, EKG and a CT scan of the abdomen pelvis with contrast ordered given his tachycardic rate and elevated white count on laboratories. He was given fluid bolus, dextrose containing fluids, Protonix and Pepcid as well as Zofran for nausea. Patient's laboratory studies show a leukocytosis of 19.6, normal hemoglobin, mildly elevated platelets. Chemistry panel shows normal renal function, mild hypokalemia but not severe. Normal glucose and LFTs. Patient's imaging results are pending. Patient had improvement in pain control and nausea control after reassessment. Patient refused to provide urine sample for unclear reasons and got defensive about this. Patient decided to leave against medical advice at this time prior to completing workup and receiving results of imaging. Medical Records Attestation: I reviewed the patient's medical records. Lab Data Attestation: I reviewed the patient's lab results. 01/07/25 02:13 01/07/25 02:13 Labs: Lab Results 01/07/25 Range/Units 02:13 WBC 19.6 H (4.5-10.0) K/mm3 RBC 5.72 (4.6-6.20) M/mm3 Hgb 16.9 (14.0-18.0) g/dL Hct 47.9 (42.0-52.0) % MCV 83.7 (80-100) fl MCH 29.5 (26-34) pg MCHC 35.3 (32-36) g/dl RDW 13.3 (11.5-14.5) % Plt Count 474 H (150-375) k/mm3 MPV 9.7 (7.4-10.4) fl Immature Gran % (Auto) 0.4 (0-0.5) % Neut % (Auto) 81.3 H (45.5-73.1) % Lymph % (Auto) 11.6 L (18.3-44.2) % Reynolds % (Auto) 6.0 (2.6-8.5) % Eos % (Auto) 0.2 (0-4.4) % Baso % (Auto) 0.5 (0.2-1.2) % Lymph # (Auto) 2.27 (0.9-3.2) K/mm3 Reynolds # (Auto) 1.2 H (0.1-0.6) K/mm3 Eos # (Auto) 0.0 (0-0.3) K/mm3 Baso # (Auto) 0.1 (0.0-0.1) K/mm3 Abs Immat Gran (auto) 0.08 H (0.00-0.031) K/mm3 Absolute Neuts (auto) 16.0 H (1.3-6.7) K/mm3 Absolute Nucleated RBC 0.000 (0.0-0.012) K/mm3 Nucleated RBC % 0.0 (0.0-0.2) % Sodium 144 (137-145) mmol/L Potassium 3.3 L (3.4-5.0) mmol/L Chloride 98 (98-107) mmol/L Carbon Dioxide 27 (22-30) mmol/L Anion Gap 19 H (4-12) mmol/L BUN 10 (9-20) mg/dL Creatinine 0.84 (0.7-1.3) mg/dL Estim Creat Clear Calc 142 ml/min Estimated GFR > 60 (59 - ) Glucose 116 H (65-110) mg/dL Calcium 9.9 (8.4-10.2) mg/dL Total Bilirubin 1.2 (0.2-1.3) mg/dL AST 33 (17-59) U/L ALT 32 (6-50) U/L Alkaline Phosphatase 78 (38-126) U/L Total Protein 9.0 H (6.3-8.2) g/dL Albumin 5.2 H (3.5-5.1) g/dL Lipase 29 (23-300) U/L Discharge Plan Discharge Clinical Impression: Abdominal pain, epigastric, Nausea & vomiting, Left against medical advice Patient Disposition: Left Against Medical Advice Condition: Stable Patient Language: Korean Prescriptions: No Action amoxicillin-pot clavulanate 875-125 mg tablet 1 tablet PO Q12H Qty: 20 0RF amoxicillin-pot clavulanate 875-125 mg tablet 1 tablet PO Q12H Qty: 20 0RF Follow-up/Referrals: PHYSICIAN,DIRECTOR OF PLAYER PERSONNEL [Primary Care Provider] - Time of Disposition: 05:00
[2025-01-07] MEDS: ONDANSETRON INJ 4 MG/2 ML VIAL IV PUSH (02:41)
[2025-01-07] MEDS: PANTOPRAZOLE SODIUM IV 40 MG VIAL IV PUSH (02:41)
[2025-01-07] MEDS: LACTATED RINGERS 1,000 ML 999 ML IV CONT (02:41)
[2025-01-07] MEDS: FAMOTIDINE 20 MG/2 ML VIAL IV PUSH (02:41)
[2025-01-07 02:44] LABS: Albumin Level 5.2 g/dL (3.5-5.1); Alkaline Phosphatase 78 U/L (38-126); Anion Gap 19 mmol/L (4-12); Aspartate Amino Transferase 33 U/L (17-59); Bilirubin,Total 1.2 mg/dL (0.2-1.3); Blood Urea Nitrogen 10 mg/dL (9-20); Calcium 9.9 mg/dL (8.4-10.2); Carbon Dioxide 27 mmol/L (22-30); Chloride 98 mmol/L (98-107); Estimated CRCL calculation 142 ml/min; Estimated Glomerular Filt Rate > 60; Glucose 116 mg/dL (65-110); Lipase 29 U/L (23-300); Potassium 3.3 mmol/L (3.4-5.0); Sodium 144 mmol/L (137-145)
[2025-01-07] MEDS: DEXTROSE 5%/LACTATED RINGERS 1,000 ML 999 ML IV CONT (02:45)
--- OUTSIDE RECORDS SUMMARY | 2025-01-07 02:49 | XMS_ITS | Clinical Summary ---
Author Organization [facility] [employer] Address [address] [facility] [place] [address] Care Team Providers Care Outside Solar Sales Consultant Name Role Phone Unavailable Primary Care Provider Unavailabl e Source Comments [facility] [employer],non-owned Affiliates and Associated Physician Practices is amultiple site organization consisting of ambulatory clinics and hospital sitesin [place], [place], [place] and [place]. This disclosure is being madepursuant to the Care Everywhere program and may not contain all information available regarding this patient. Last updated 18.[facility] [employer] Social History Tobacco Use Types Packs/Day Years [...]
--- OUTSIDE RECORDS SUMMARY | 2025-01-07 02:49 | XMS_ITS | Clinical Summary ---
Author Organization [facility] Address [address] [place] [address] Care Team Providers Care Franchise Broker Name Role Phone Unavailable Primary Care Provider [...]
--- OUTSIDE RECORDS SUMMARY | 2025-01-07 02:49 | XMS_ITS | Referral Summary ---
Author Organization [facility] [address] [facility] Address [address] [place] [address] Care Team Providers Care Arrt Technologist Name Role Phone Vivien Geronimo Primary Care Provider +1- [phone] Allergies Active Allergy Reactions Criticality Noted Date Comments Ibuprofen Hives Medium 12/09/2019 Medications No known medications Active Problems Problem Noted Date Diagnosed Date BMI 40.0-44.9, adult 12/09/2019 Assessment & Plan (12/09/2019 10:44 AM RANGE MASTER): Obesity is unchanged. Discussed the patient's BMI. The BMI is above average. BMI management plan is completed. BMI Follow-up includes: nutrition counseling, exercise counseling and education provided. Morbid obesity 12/09/2019 Assessment & Plan (12/09/2019 10:44 AM RANGE MASTER): Obesity is unchanged. Discussed the patient's BMI. The BMI is above average. BMI management plan is completed. BMI Follow-up includes: nutrition counseling, exercise counseling and education provided. Positive depression screening 12/09/2019 Assessment & Plan (12/09/2019 8:45 PM RANGE MASTER): Diagnosis is made today. See depression for plan Cigarette smoker 12/09/2019 Assessment & Plan (12/09/2019 8:46 PM RANGE MASTER): Encouraged smoking cessation. Discussed 3 minutes. Reviewed options for assistance with cessation. Reviewed predatory animal exterminator sequela associated with smoking. Pt declines assistance at this time but may contact the office at anytime for further help as they desire. Annual physical exam 12/09/2019 Assessment & Plan (12/09/2019 8:47 PM RANGE MASTER): Encouraged healthy lifestyle, good nutrition and exercise. Encouraged Calcium and Vitamin D and weight bearing exercise for bone health. Reviewed immunizations Reviewed age appropirate screenings. Need for Tdap vaccination 12/09/2019 Assessment & Plan (12/09/2019 8:46 PM RANGE MASTER): Updated in office today Moderate episode of recurrent major depressive d isorder 12/09/2019 Assessment & Plan (12/09/2019 8:46 PM RANGE MASTER): Discussed treatment options including medication, counseling and exercise/diet. He would like to get labs and monitor and discuss again at his next visit. No suicidal or homicidal thoughts. Seems more situational around unemployment and custody. Lipid screening 12/09/2019 Assessment & Plan (12/09/2019 8:47 PM RANGE MASTER): Check labs Diabetes mellitus screening 12/09/2019 Assessment & Plan (12/09/2019 8:47 PM RANGE MASTER): Check labs Other fatigue 12/09/2019 Assessment & Plan (12/09/2019 8:47 PM RANGE MASTER): Probably multifactorial. Check labs and followup to [...] on file Legal Sex Male 8:23 AM RANGE MASTER Gender Identity Not on file Sexual Orientation Not on file Occupation Industry Job Start Date Job End Date [employer] Not on file Not on fi le Not on file Last Filed Vital Signs Vital Sign Reading Time Taken Comments Blood Pressure 136/78 12/09/2019 10:40 AM RANGE MASTER Pulse 90 12/09/2019 10:40 AM RANGE MASTER Temperature 37 C (98.6 F) 12/09/2019 10:40 AM RANGE MASTER Respiratory Rate - - Oxygen Saturation 97% 12/09/2019 10: 40 AM RANGE MASTER Inhaled Oxygen Concentration - - Weight 126.3 kg (278 lb 6.4 oz) 020 10:40 AM RANGE MASTER Height 171.5 cm (5' 7.5 ) 12/09/2019 10 :40 AM RANGE MASTER Body Mass Index 42.96 12/09/2019 10:40 AM RANGE MASTER Plan of Treatment Not on file Insurance [facility] Care Teams Arrt Technologist Relationship Specialty Start Date End Date Vivien Geronimo PA [address] [facility] [address] [place], [place] [id number] PCP - General Internal Medicine 09/09/19
--- OUTSIDE RECORDS SUMMARY | 2025-01-07 02:49 | XMS_ITS | Clinical Summary ---
Author Organization [facility] [place] [address] [facility] Address [address] [place] [address] Care Team Providers Care National Facilities Manager Name Role Phone Vivien Geronimo Primary Care Provider +1- [phone] Allergies Active Allergy Reactions Criticality Noted Date Comments Ibuprofen Hives Medium 12/09/2019 Medications No known medications Active Problems Problem Noted Date Diagnosed Date BMI 40.0-44.9, adult 12/09/2019 Assessment & Plan (12/09/2019 10:44 AM BAG MAKING MACHINE OPERATOR): Obesity is unchanged. Discussed the patient's BMI. The BMI is above average. BMI management plan is completed. BMI Follow-up includes: nutrition counseling, exercise counseling and education provided. Morbid obesity 12/09/2019 Assessment & Plan (12/09/2019 10:44 AM BAG MAKING MACHINE OPERATOR): Obesity is unchanged. Discussed the patient's BMI. The BMI is above average. BMI management plan is completed. BMI Follow-up includes: nutrition counseling, exercise counseling and education provided. Positive depression screening 12/09/2019 Assessment & Plan (12/09/2019 8:45 PM BAG MAKING MACHINE OPERATOR): Diagnosis is made today. See depression for plan Cigarette smoker 12/09/2019 Assessment & Plan (12/09/2019 8:46 PM BAG MAKING MACHINE OPERATOR): Encouraged smoking cessation. Discussed 3 minutes. Reviewed options for assistance with cessation. Reviewed property inspector sequela associated with smoking. Pt declines assistance at this time but may contact the office at anytime for further help as they desire. Annual physical exam 12/09/2019 Assessment & Plan (12/09/2019 8:47 PM BAG MAKING MACHINE OPERATOR): Encouraged healthy lifestyle, good nutrition and exercise. Encouraged Calcium and Vitamin D and weight bearing exercise for bone health. Reviewed immunizations Reviewed age appropirate screenings. Need for Tdap vaccination 12/09/2019 Assessment & Plan (12/09/2019 8:46 PM BAG MAKING MACHINE OPERATOR): Updated in office today Moderate episode of recurrent major depressive d isorder 12/09/2019 Assessment & Plan (12/09/2019 8:46 PM BAG MAKING MACHINE OPERATOR): Discussed treatment options including medication, counseling and exercise/diet. He would like to get labs and monitor and discuss again at his next visit. No suicidal or homicidal thoughts. Seems more situational around unemployment and custody. Lipid screening 12/09/2019 Assessment & Plan (12/09/2019 8:47 PM BAG MAKING MACHINE OPERATOR): Check labs Diabetes mellitus screening 12/09/2019 Assessment & Plan (12/09/2019 8:47 PM BAG MAKING MACHINE OPERATOR): Check labs Other fatigue 12/09/2019 Assessment & Plan (12/09/2019 8:47 PM BAG MAKING MACHINE OPERATOR): Probably multifactorial. 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 Obstetrics History Last Filed Vital Signs Vital Sign Reading Time Taken Comments Blood Pressure 136/78 12/09/2019 10:40 AM BAG MAKING MACHINE OPERATOR Pulse 90 12/09/2019 10:40 AM BAG MAKING MACHINE OPERATOR Temperature 37 C (98.6 F) 12/09/2019 10:40 AM BAG MAKING MACHINE OPERATOR Respiratory Rate - - Oxygen Saturation 97% 12/09/2019 10: 40 AM BAG MAKING MACHINE OPERATOR Inhaled Oxygen Concentration - - Weight 126.3 kg (278 lb 6.4 oz) 020 10:40 AM BAG MAKING MACHINE OPERATOR Height 171.5 cm (5' 7.5 ) 12/09/2019 10 :40 AM BAG MAKING MACHINE OPERATOR Body Mass Index 42.96 12/09/2019 10:40 AM BAG MAKING MACHINE OPERATOR Plan of Treatment Not on file Insurance [facility] [place] [id number] Care Teams National Facilities Manager Relationship Specialty Start Date End Date Vivien Geronimo PA [address] [facility] [address] [place] [address] PCP - General Internal Medicine 09/09/19
[2025-01-07 03:07] LABS: Alanine Aminotransferase 32 U/L (6-50)
[2025-01-07 03:35] VITALS: BP 141/78; PULSE 124; RESP 15; O2SAT 98
--- NOTE | 2025-01-07 03:45 | PC.NURSE ---
This RN asked pt for second time if he could provide a urine sample. Pt replies I don't have to go This RN asked pt if he could at least try to urinate as he has gotten nearly 2 L of IV fluid. Pt again states I don't have to go yet This RN offered to bladder scan pt to see if urine is in his bladder, pt refused. This RN then went to the other side of [facility] to discharge the pt in room 2 and could hear pt from room 3 stating I swear to god i'll rip this IV out right now and leave i dont need this shit This RN went back into room 3 to de-escalate situation. Pt agreed to try urinating in a little while . EDP made aware.
--- NOTE | 2025-01-07 04:56 | PC.NURSE ---
Pt states that he feels better and would like to leave. This RN explained to pt that all of his results are not back yet and that if he leaves there is a risk for worsening condition and/or . EDP made aware of pt's decision to leave. Pt signed AMA form, IV was removed. Pt ambulated out of the ED.
== END 2025-01-07 05:06 | disposition left against medical advice (07) ==
PROVIDERS: Emergency Provider Student in an Organized Health Care Education/Training Program
DX: R11.2 Nausea with vomiting, unspecified (principal); R10.13 Epigastric pain; I10 Essential (primary) hypertension; J45.909 Unspecified asthma, uncomplicated; F17.210 Nicotine dependence, cigarettes, uncomplicated; R94.31 Abnormal electrocardiogram [ECG] [EKG]; R00.0 Tachycardia, unspecified
CPT/HCPCS: 36415; 71045; 74177; 80053; 83690; 85025; 93005; 96361; 96374; 96375; 99284; J2405; J2470; J7120; J7121; Q9967

== ENCOUNTER 2025-01-15 21:14 | Emergency (ER) | payer BC, SELFPAY ==
--- NOTE | ~2025-01-15 | CT_ITS ---
CT of the Abdomen and Pelvis: Indication: Abdominal pain Technique: 2.5 mm axial scans were obtained through the abdomen and pelvis following intravenous adm inistration of 100 cc of Omnipaque 350. Dose reduction technique was used on this scan by utilizing a utomated exposure control and iterative reconstruction technique. The dose-length product (DLP) was 1 666.57 mGy-cm. COMPARISON: 01/07/2025 Findings: Scans through the lung bases are unremarkable. The liver, spleen, pancreas, gallbladder, adrenals and kidneys are within normal limits. No evidence of aortic aneurysm. No lymphadenopathy. No bowel obstruction or bowel wall thickening. There is no evidence to suggest acute appendicitis. Images through the pelvis were performed. Urinary bladder unremarkable. No pelvic mass seen. No ascit es. Impression: No significant abnormalities seen. Reviewed, dictated and finalized at [facility]. Impression: No significant abnormalities seen.
--- OUTSIDE RECORDS SUMMARY | 2025-01-15 21:16 | XMS_ITS | Clinical Summary ---
Author Organization [facility] [place] [address] [facility] Address [address] [place] [address] Care Team Providers Care Urgent Care Physician Assistant Name Role Phone Vivien Geronimo Primary Care Provider +1- [phone] Allergies Active Allergy Reactions Criticality Noted Date Comments Ibuprofen Hives Medium 12/09/2019 Medications No known medications Active Problems Problem Noted Date Diagnosed Date BMI 40.0-44.9, adult 12/09/2019 Assessment & Plan (12/09/2019 10:44 AM RUBBER ROLLER GRINDER OPERATOR): Obesity is unchanged. Discussed the patient's BMI. The BMI is above average. BMI management plan is completed. BMI Follow-up includes: nutrition counseling, exercise counseling and education provided. Morbid obesity 12/09/2019 Assessment & Plan (12/09/2019 10:44 AM RUBBER ROLLER GRINDER OPERATOR): Obesity is unchanged. Discussed the patient's BMI. The BMI is above average. BMI management plan is completed. BMI Follow-up includes: nutrition counseling, exercise counseling and education provided. Positive depression screening 12/09/2019 Assessment & Plan (12/09/2019 8:45 PM RUBBER ROLLER GRINDER OPERATOR): Diagnosis is made today. See depression for plan Cigarette smoker 12/09/2019 Assessment & Plan (12/09/2019 8:46 PM RUBBER ROLLER GRINDER OPERATOR): Encouraged smoking cessation. Discussed 3 minutes. Reviewed options for assistance with cessation. Reviewed residential sequela associated with smoking. Pt declines assistance at this time but may contact the office at anytime for further help as they desire. Annual physical exam 12/09/2019 Assessment & Plan (12/09/2019 8:47 PM RUBBER ROLLER GRINDER OPERATOR): Encouraged healthy lifestyle, good nutrition and exercise. Encouraged Calcium and Vitamin D and weight bearing exercise for bone health. Reviewed immunizations Reviewed age appropirate screenings. Need for Tdap vaccination 12/09/2019 Assessment & Plan (12/09/2019 8:46 PM RUBBER ROLLER GRINDER OPERATOR): Updated in office today Moderate episode of recurrent major depressive d isorder 12/09/2019 Assessment & Plan (12/09/2019 8:46 PM RUBBER ROLLER GRINDER OPERATOR): Discussed treatment options including medication, counseling and exercise/diet. He would like to get labs and monitor and discuss again at his next visit. No suicidal or homicidal thoughts. Seems more situational around unemployment and custody. Lipid screening 12/09/2019 Assessment & Plan (12/09/2019 8:47 PM RUBBER ROLLER GRINDER OPERATOR): Check labs Diabetes mellitus screening 12/09/2019 Assessment & Plan (12/09/2019 8:47 PM RUBBER ROLLER GRINDER OPERATOR): Check labs Other fatigue 12/09/2019 Assessment & Plan (12/09/2019 8:47 PM RUBBER ROLLER GRINDER OPERATOR): Probably multifactorial. 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 Obstetrics History Last Filed Vital Signs Vital Sign Reading Time Taken Comments Blood Pressure 136/78 12/09/2019 10:40 AM RUBBER ROLLER GRINDER OPERATOR Pulse 90 12/09/2019 10:40 AM RUBBER ROLLER GRINDER OPERATOR Temperature 37 C (98.6 F) 12/09/2019 10:40 AM RUBBER ROLLER GRINDER OPERATOR Respiratory Rate - - Oxygen Saturation 97% 12/09/2019 10: 40 AM RUBBER ROLLER GRINDER OPERATOR Inhaled Oxygen Concentration - - Weight 126.3 kg (278 lb 6.4 oz) 020 10:40 AM RUBBER ROLLER GRINDER OPERATOR Height 171.5 cm (5' 7.5 ) 12/09/2019 10 :40 AM RUBBER ROLLER GRINDER OPERATOR Body Mass Index 42.96 12/09/2019 10:40 AM RUBBER ROLLER GRINDER OPERATOR Plan of Treatment Not on file Insurance [facility] [place] [id number] Care Teams Urgent Care Physician Assistant Relationship Specialty Start Date End Date Vivien Geronimo PA [address] [facility] [address] [place] [address] PCP - General Internal Medicine 09/09/19
--- OUTSIDE RECORDS SUMMARY | 2025-01-15 21:17 | XMS_ITS | Clinical Summary ---
Author Organization [facility] Address [address] [facility] [place] [address] Care Team Providers Care Transportation Superintendent Name Role Phone Unavailable Primary Care Provider Unavailabl e Source Comments [facility],non-owned Affiliates and Associated Physician Practices is amultiple site organization consisting of ambulatory clinics and hospital sitesin [place], [place], [place] and [place]. This disclosure is being madepursuant to the Care Everywhere program and may not contain all information available regarding this patient. Last updated 18.[facility] Social History Tobacco Use Types Packs/Day Years [...] VACCINE ( - 2023-2 5 season) 2024 DEPRESSION SCREENING 10/08/2024 INFLUENZA VACCINE (Season Ended) 2025 ZOSTER VACCINE (1 of 2) 2045 HIB [...]
--- OUTSIDE RECORDS SUMMARY | 2025-01-15 21:17 | XMS_ITS | Referral Summary ---
Author Organization [facility] [place] [address] [facility] Address [address] [place] [address] Care Team Providers Care Project Product Manager Name Role Phone Vivien Geronimo Primary Care Provider +1- [phone] Allergies Active Allergy Reactions Criticality Noted Date Comments Ibuprofen Hives Medium 12/09/2019 Medications No known medications Active Problems Problem Noted Date Diagnosed Date BMI 40.0-44.9, adult 12/09/2019 Assessment & Plan (12/09/2019 10:44 AM PROJECT MANAGEMENT INTERN): Obesity is unchanged. Discussed the patient's BMI. The BMI is above average. BMI management plan is completed. BMI Follow-up includes: nutrition counseling, exercise counseling and education provided. Morbid obesity 12/09/2019 Assessment & Plan (12/09/2019 10:44 AM PROJECT MANAGEMENT INTERN): Obesity is unchanged. Discussed the patient's BMI. The BMI is above average. BMI management plan is completed. BMI Follow-up includes: nutrition counseling, exercise counseling and education provided. Positive depression screening 12/09/2019 Assessment & Plan (12/09/2019 8:45 PM PROJECT MANAGEMENT INTERN): Diagnosis is made today. See depression for plan Cigarette smoker 12/09/2019 Assessment & Plan (12/09/2019 8:46 PM PROJECT MANAGEMENT INTERN): Encouraged smoking cessation. Discussed 3 minutes. Reviewed options for assistance with cessation. Reviewed skilled nursing sequela associated with smoking. Pt declines assistance at this time but may contact the office at anytime for further help as they desire. Annual physical exam 12/09/2019 Assessment & Plan (12/09/2019 8:47 PM PROJECT MANAGEMENT INTERN): Encouraged healthy lifestyle, good nutrition and exercise. Encouraged Calcium and Vitamin D and weight bearing exercise for bone health. Reviewed immunizations Reviewed age appropirate screenings. Need for Tdap vaccination 12/09/2019 Assessment & Plan (12/09/2019 8:46 PM PROJECT MANAGEMENT INTERN): Updated in office today Moderate episode of recurrent major depressive d isorder 12/09/2019 Assessment & Plan (12/09/2019 8:46 PM PROJECT MANAGEMENT INTERN): Discussed treatment options including medication, counseling and exercise/diet. He would like to get labs and monitor and discuss again at his next visit. No suicidal or homicidal thoughts. Seems more situational around unemployment and custody. Lipid screening 12/09/2019 Assessment & Plan (12/09/2019 8:47 PM PROJECT MANAGEMENT INTERN): Check labs Diabetes mellitus screening 12/09/2019 Assessment & Plan (12/09/2019 8:47 PM PROJECT MANAGEMENT INTERN): Check labs Other fatigue 12/09/2019 Assessment & Plan (12/09/2019 8:47 PM PROJECT MANAGEMENT INTERN): Probably multifactorial. 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 Last Filed Vital Signs Vital Sign Reading Time Taken Comments Blood Pressure 136/78 12/09/2019 10:40 AM PROJECT MANAGEMENT INTERN Pulse 90 12/09/2019 10:40 AM PROJECT MANAGEMENT INTERN Temperature 37 C (98.6 F) 12/09/2019 10:40 AM PROJECT MANAGEMENT INTERN Respiratory Rate - - Oxygen Saturation 97% 12/09/2019 10: 40 AM PROJECT MANAGEMENT INTERN Inhaled Oxygen Concentration - - Weight 126.3 kg (278 lb 6.4 oz) 020 10:40 AM PROJECT MANAGEMENT INTERN Height 171.5 cm (5' 7.5 ) 12/09/2019 10 :40 AM PROJECT MANAGEMENT INTERN Body Mass Index 42.96 12/09/2019 10:40 AM PROJECT MANAGEMENT INTERN Plan of Treatment Not on file Insurance [facility] [employer] [facility] Care Teams Project Product Manager Relationship Specialty Start Date End Date Vivien Geronimo PA [address] [facility] [address] [place], [place] [phone] PCP - General Internal Medicine 09/09/19
--- OUTSIDE RECORDS SUMMARY | 2025-01-15 21:17 | XMS_ITS | Clinical Summary ---
Author Organization [facility] Address [address] [place] [id number] Care Team Providers Care Security Director Name Role Phone Unavailable Primary Care Provider [...]
[2025-01-15 21:20] VITALS: BP 160/100; PULSE 105; RESP 22; TEMP 36.9; O2SAT 100
[2025-01-16] VITALS (18 sets, daily range): BP systolic 127–181; BP diastolic 69–97; PULSE 91–128; RESP 8–22; TEMP 36.9–37; O2SAT 98–100
[2025-01-16 02:18] LABS: Basophils Percent Auto 0.2 % (0.2-1.2); Eosinophils Percent Auto 0.1 % (0-4.4); Hematocrit 49.2 % (42.0-52.0); Immature Granulocyte Absolute 0.08 K/mm3 (0.00-0.031); Immature Granulocyte Percent A 0.5 % (0-0.5); Lymphocytes Absolute Auto 1.11 K/mm3 (0.9-3.2); Lymphocytes Percent Auto 6.3 % (18.3-44.2); Mean Corpuscular HGB Conc 34.6 g/dl (32-36); Mean Corpuscular Hemoglobin 28.9 pg (26-34); Mean Corpuscular Volume 83.7 fl (80-100); Mean Platelet Volume 9.9 fl (7.4-10.4); Monocytes Absolute Auto 0.5 K/mm3 (0.1-0.6); Monocytes Percent Auto 2.9 % (2.6-8.5); Platelet Count Result 472 k/mm3 (150-375); Red Blood Count 5.88 M/mm3 (4.6-6.20); Red Cell Distribution Width 13.1 % (11.5-14.5); White Blood Count 17.7 K/mm3 (4.5-10.0)
[2025-01-16 02:28] LABS: Albumin Level 5.1 g/dL (3.5-5.1); Alkaline Phosphatase 83 U/L (38-126); Anion Gap 19 mmol/L (4-12); Aspartate Amino Transferase 48 U/L (17-59); Bilirubin,Total 0.9 mg/dL (0.2-1.3); Blood Urea Nitrogen 9 mg/dL (9-20); Calcium 9.7 mg/dL (8.4-10.2); Carbon Dioxide 24 mmol/L (22-30); Chloride 99 mmol/L (98-107); Estimated CRCL calculation 158 ml/min; Estimated Glomerular Filt Rate > 60; Glucose 124 mg/dL (65-110); Lipase 26 U/L (23-300); Potassium 3.9 mmol/L (3.4-5.0); Sodium 142 mmol/L (137-145)
[2025-01-16 02:37] LABS: Alanine Aminotransferase 75 U/L (6-50)
--- OUTSIDE RECORDS SUMMARY | 2025-01-16 02:41 | XMS_ITS | Clinical Summary ---
Author Organization [facility] Address [address] [place] [address] Care Team Providers Care Information Security Risk Analyst Name Role Phone Unavailable Primary Care Provider [...]
--- OUTSIDE RECORDS SUMMARY | 2025-01-16 02:41 | XMS_ITS | Referral Summary ---
Author Organization [facility] [place] [address] [facility] Address [address] [place] [address] Care Team Providers Care Real Estate Inspector Name Role Phone Vivien Geronimo Primary Care Provider +1- [phone] Allergies Active Allergy Reactions Criticality Noted Date Comments Ibuprofen Hives Medium 12/09/2019 Medications No known medications Active Problems Problem Noted Date Diagnosed Date BMI 40.0-44.9, adult 12/09/2019 Assessment & Plan (12/09/2019 10:44 AM BRICK CATCHER): Obesity is unchanged. Discussed the patient's BMI. The BMI is above average. BMI management plan is completed. BMI Follow-up includes: nutrition counseling, exercise counseling and education provided. Morbid obesity 12/09/2019 Assessment & Plan (12/09/2019 10:44 AM BRICK CATCHER): Obesity is unchanged. Discussed the patient's BMI. The BMI is above average. BMI management plan is completed. BMI Follow-up includes: nutrition counseling, exercise counseling and education provided. Positive depression screening 12/09/2019 Assessment & Plan (12/09/2019 8:45 PM BRICK CATCHER): Diagnosis is made today. See depression for plan Cigarette smoker 12/09/2019 Assessment & Plan (12/09/2019 8:46 PM BRICK CATCHER): Encouraged smoking cessation. Discussed 3 minutes. Reviewed options for assistance with cessation. Reviewed shelter sequela associated with smoking. Pt declines assistance at this time but may contact the office at anytime for further help as they desire. Annual physical exam 12/09/2019 Assessment & Plan (12/09/2019 8:47 PM BRICK CATCHER): Encouraged healthy lifestyle, good nutrition and exercise. Encouraged Calcium and Vitamin D and weight bearing exercise for bone health. Reviewed immunizations Reviewed age appropirate screenings. Need for Tdap vaccination 12/09/2019 Assessment & Plan (12/09/2019 8:46 PM BRICK CATCHER): Updated in office today Moderate episode of recurrent major depressive d isorder 12/09/2019 Assessment & Plan (12/09/2019 8:46 PM BRICK CATCHER): Discussed treatment options including medication, counseling and exercise/diet. He would like to get labs and monitor and discuss again at his next visit. No suicidal or homicidal thoughts. Seems more situational around unemployment and custody. Lipid screening 12/09/2019 Assessment & Plan (12/09/2019 8:47 PM BRICK CATCHER): Check labs Diabetes mellitus screening 12/09/2019 Assessment & Plan (12/09/2019 8:47 PM BRICK CATCHER): Check labs Other fatigue 12/09/2019 Assessment & Plan (12/09/2019 8:47 PM BRICK CATCHER): Probably multifactorial. 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 Last Filed Vital Signs Vital Sign Reading Time Taken Comments Blood Pressure 136/78 12/09/2019 10:40 AM BRICK CATCHER Pulse 90 12/09/2019 10:40 AM BRICK CATCHER Temperature 37 C (98.6 F) 12/09/2019 10:40 AM BRICK CATCHER Respiratory Rate - - Oxygen Saturation 97% 12/09/2019 10: 40 AM BRICK CATCHER Inhaled Oxygen Concentration - - Weight 126.3 kg (278 lb 6.4 oz) 020 10:40 AM BRICK CATCHER Height 171.5 cm (5' 7.5 ) 12/09/2019 10 :40 AM BRICK CATCHER Body Mass Index 42.96 12/09/2019 10:40 AM BRICK CATCHER Plan of Treatment Not on file Insurance [facility] [employer] [facility] Care Teams Real Estate Inspector Relationship Specialty Start Date End Date Vivien Geronimo PA [address] [facility] [address] [place], [place] [phone] PCP - General Internal Medicine 09/09/19
--- OUTSIDE RECORDS SUMMARY | 2025-01-16 02:41 | XMS_ITS | Clinical Summary ---
Author Organization [facility] Address [address] [place] [address] Care Team Providers Care Specialty Finishing Utility Person Name Role Phone Unavailable Primary Care Provider Unavailabl e Source Comments [facility],non-owned Affiliates and Associated Physician Practices is amultiple site organization consisting of ambulatory clinics and hospital sitesin [place], [place], [place] and [place]. This disclosure is being madepursuant to the Care Everywhere program and may not contain all information available regarding this patient. Last updated 18.[facility] Social History Tobacco Use Types Packs/Day Years [...]
--- OUTSIDE RECORDS SUMMARY | 2025-01-16 02:41 | XMS_ITS | Clinical Summary ---
Author Organization [facility] [address] [facility] Address [address] [place] [address] Care Team Providers Care Clay Plant Treater Name Role Phone Vivien Geronimo Primary Care Provider +1- [phone] Allergies Active Allergy Reactions Criticality Noted Date Comments Ibuprofen Hives Medium 12/09/2019 Medications No known medications Active Problems Problem Noted Date Diagnosed Date BMI 40.0-44.9, adult 12/09/2019 Assessment & Plan (12/09/2019 10:44 AM COMPENSATION BUSINESS PARTNER): Obesity is unchanged. Discussed the patient's BMI. The BMI is above average. BMI management plan is completed. BMI Follow-up includes: nutrition counseling, exercise counseling and education provided. Morbid obesity 12/09/2019 Assessment & Plan (12/09/2019 10:44 AM COMPENSATION BUSINESS PARTNER): Obesity is unchanged. Discussed the patient's BMI. The BMI is above average. BMI management plan is completed. BMI Follow-up includes: nutrition counseling, exercise counseling and education provided. Positive depression screening 12/09/2019 Assessment & Plan (12/09/2019 8:45 PM COMPENSATION BUSINESS PARTNER): Diagnosis is made today. See depression for plan Cigarette smoker 12/09/2019 Assessment & Plan (12/09/2019 8:46 PM COMPENSATION BUSINESS PARTNER): Encouraged smoking cessation. Discussed 3 minutes. Reviewed options for assistance with cessation. Reviewed nursing home sequela associated with smoking. Pt declines assistance at this time but may contact the office at anytime for further help as they desire. Annual physical exam 12/09/2019 Assessment & Plan (12/09/2019 8:47 PM COMPENSATION BUSINESS PARTNER): Encouraged healthy lifestyle, good nutrition and exercise. Encouraged Calcium and Vitamin D and weight bearing exercise for bone health. Reviewed immunizations Reviewed age appropirate screenings. Need for Tdap vaccination 12/09/2019 Assessment & Plan (12/09/2019 8:46 PM COMPENSATION BUSINESS PARTNER): Updated in office today Moderate episode of recurrent major depressive d isorder 12/09/2019 Assessment & Plan (12/09/2019 8:46 PM COMPENSATION BUSINESS PARTNER): Discussed treatment options including medication, counseling and exercise/diet. He would like to get labs and monitor and discuss again at his next visit. No suicidal or homicidal thoughts. Seems more situational around unemployment and custody. Lipid screening 12/09/2019 Assessment & Plan (12/09/2019 8:47 PM COMPENSATION BUSINESS PARTNER): Check labs Diabetes mellitus screening 12/09/2019 Assessment & Plan (12/09/2019 8:47 PM COMPENSATION BUSINESS PARTNER): Check labs Other fatigue 12/09/2019 Assessment & Plan (12/09/2019 8:47 PM COMPENSATION BUSINESS PARTNER): Probably multifactorial. 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 Not on file Obstetrics History Last Filed Vital Signs Vital Sign Reading Time Taken Comments Blood Pressure 136/78 12/09/2019 10:40 AM COMPENSATION BUSINESS PARTNER Pulse 90 12/09/2019 10:40 AM COMPENSATION BUSINESS PARTNER Temperature 37 C (98.6 F) 12/09/2019 10:40 AM COMPENSATION BUSINESS PARTNER Respiratory Rate - - Oxygen Saturation 97% 12/09/2019 10: 40 AM COMPENSATION BUSINESS PARTNER Inhaled Oxygen Concentration - - Weight 126.3 kg (278 lb 6.4 oz) 020 10:40 AM COMPENSATION BUSINESS PARTNER Height 171.5 cm (5' 7.5 ) 12/09/2019 10 :40 AM COMPENSATION BUSINESS PARTNER Body Mass Index 42.96 12/09/2019 10:40 AM COMPENSATION BUSINESS PARTNER Plan of Treatment Not on file Insurance [facility] [place] [id number] Care Teams Clay Plant Treater Relationship Specialty Start Date End Date Vivien Geronimo PA [address] [facility] [address] [place] [address] PCP - General Internal Medicine 09/09/19
[2025-01-16] MEDS: ONDANSETRON INJ 4 MG/2 ML VIAL IV PUSH (02:48)
[2025-01-16] MEDS: FAMOTIDINE 20 MG/2 ML VIAL IV PUSH (02:48)
[2025-01-16] MEDS: SODIUM CHLORIDE 0.9% IV 1,000 ML 999 ML IV CONT ×2 (02:49→06:28)
--- NOTE | 2025-01-16 02:58 | ED_ITS ---
HPI - General Adult General Chief complaint: Abdominal Pain Stated complaint: N/V and abd pain since last night Time Seen by Provider: 01/16/25 02:17 History of Present Illness HPI narrative: Patient with an year old gentleman presents emergency department with chief complaint of nausea vomiting and abdominal pain. Patient reports that he has cramping in his abdomen reports that he has not been able to keep anything down reports no diarrhea and reports he had a normal bowel movement this evening. The patient reports the pain is worse with palpation reports he has had no fever but does report that he has had chills and body aches Related Data Allergies Allergy/AdvReac Type Severity Reaction Status Date / Time No Known Allergies Allergy Verified 01/15/25 21:15 Review of Systems 2 Review of Systems: A 10 system review of systems was completed on the patient and is negative except for what is stated in the HPI. Nursing and ancillary documentation was reviewed. [facility] Past Medical History Medical History Asthma Social History Social History Smoking status: Current every day smoker Tobacco type: cigarettes Substance use: never Gender identity (if verbalized by the patient): Male Sexual Orientation (if Verbalized by the Patient): Straight or Heterosexual Exam 2 Narrative: GENERAL: Ill-appearing, well-nourished, and in mild acute distress. HEAD: Normocephalic, atraumatic. EYES: PERRLA and EOMI. ENT: Nares clear, no rhinorrhea or epistaxis. Mucous membranes moist. NECK: Supple. CHEST: Clear to auscultation. No respiratory distress. HEART: Regular rate and rhythm. No murmur heard. Normal peripheral pulses. ABDOMEN: Soft, diffuse tenderness to palpation, nondistended, normal active bowel sounds. EXTREMITIES: Normal range of motion. No edema. SKIN: Warm, dry, no rash. NEURO: No focal deficits. Alert and oriented x3. PSYCH: Normal mood and affect. Course Vital Signs Vital signs: Vital Signs Temperature 36.9 C 01/15/25 21:20 Pulse Rate 105 H 01/15/25 21:20 Respiratory Rate 22 H 01/15/25 21:20 Blood Pressure 160/100 H 01/15/25 21:20 Pulse Oximetry 100 01/15/25 21:20 Oxygen Delivery Room Air 01/15/25 21:20 Temperature 37.0 C 01/16/25 02:33 Pulse Rate 114 H 01/16/25 06:16 Respiratory Rate 20 01/16/25 06:16 Blood Pressure 152/84 H 01/16/25 06:16 Pulse Oximetry 99 01/16/25 05:16 Oxygen Delivery Room Air 01/15/25 21:20 Medical Decision Making [facility] Narrative Medical decision making narrative: Differential diagnosis includes intra-abdominal infection, gastroenteritis, dehydration Patient probably extremities did show leukocytosis white count 7 CMP CO2 24 anion gap was slightly elevated the patient nausea vomiting patient's blood sugar is 124 urinalysis showed specific gravity greater 1.045 and 3+ ketones patient received 2 L of normal saline boluses. CT scan of the abdomen pelvis showed no acute abnormality Patient was instructed to a clear liquid with the diet for the next 24 hours the patient was given a prescription for Zofran and Bentyl Vital Signs Vital Signs: Vital Signs Temperature 36.9 C 01/15/25 21:20 Pulse Rate 105 H 01/15/25 21:20 Respiratory Rate 22 H 01/15/25 21:20 Blood Pressure 160/100 H 01/15/25 21:20 Pulse Oximetry 100 01/15/25 21:20 Oxygen Delivery Room Air 01/15/25 21:20 Temperature 37.0 C 01/16/25 02:33 Pulse Rate 114 H 01/16/25 06:16 Respiratory Rate 20 01/16/25 06:16 Blood Pressure 152/84 H 01/16/25 06:16 Pulse Oximetry 99 01/16/25 05:16 Oxygen Delivery Room Air 01/15/25 21:20 Lab Data 01/16/25 02:12 01/16/25 02:12 Labs: Lab Results 01/16/25 01/16/25 Range/Units 02:12 05:50 WBC 17.7 H (4.5-10.0) K/mm3 RBC 5.88 (4.6-6.20) M/mm3 Hgb 17.0 (14.0-18.0) g/dL Hct 49.2 (42.0-52.0) % MCV 83.7 (80-100) fl MCH 28.9 (26-34) pg MCHC 34.6 (32-36) g/dl RDW 13.1 (11.5-14.5) % Plt Count 472 H (150-375) k/mm3 MPV 9.9 (7.4-10.4) fl Immature Gran % (Auto) 0.5 (0-0.5) % Neut % (Auto) 90.0 H (45.5-73.1) % Lymph % (Auto) 6.3 L (18.3-44.2) % Kinney % (Auto) 2.9 (2.6-8.5) % Eos % (Auto) 0.1 (0-4.4) % Baso % (Auto) 0.2 (0.2-1.2) % Lymph # (Auto) 1.11 (0.9-3.2) K/mm3 Kinney # (Auto) 0.5 (0.1-0.6) K/mm3 Eos # (Auto) 0.0 (0-0.3) K/mm3 Baso # (Auto) 0.0 (0.0-0.1) K/mm3 Abs Immat Gran (auto) 0.08 H (0.00-0.031) K/mm3 Absolute Neuts (auto) 16.0 H (1.3-6.7) K/mm3 Absolute Nucleated RBC 0.000 (0.0-0.012) K/mm3 Nucleated RBC % 0.0 (0.0-0.2) % Sodium 142 (137-145) mmol/L Potassium 3.9 (3.4-5.0) mmol/L Chloride 99 (98-107) mmol/L Carbon Dioxide 24 (22-30) mmol/L Anion Gap 19 H (4-12) mmol/L BUN 9 (9-20) mg/dL Creatinine 0.74 (0.7-1.3) mg/dL Estim Creat Clear Calc 158 ml/min Estimated GFR > 60 (59 - ) Glucose 124 H (65-110) mg/dL Calcium 9.7 (8.4-10.2) mg/dL Total Bilirubin 0.9 (0.2-1.3) mg/dL AST 48 (17-59) U/L ALT 75 H (6-50) U/L Alkaline Phosphatase 83 (38-126) U/L Total Protein 9.0 H (6.3-8.2) g/dL Albumin 5.1 (3.5-5.1) g/dL Lipase 26 (23-300) U/L Urine Color Yellow (Yellow) Urine Appearance Clear (Clear) Urine pH 6.0 (5.0-9.0) Ur Specific [place] > 1.045 H (1.001-1.035) Urine Protein 1+ H (Negative) mg/dL Urine Glucose (UA) Negative (Negative) mg/dL Urine Ketones 3+ H (Negative) mg/dL Ur Blood (Man) Negative (Negative) Urine Nitrate Negative (Negative) Urine Bilirubin Negative (Negative) Urine Urobilinogen 1.0 (<2.0) mg/dL Leukocyte Esterase Rfl Negative (Negative) JOSEP/UL Urine RBC 0-2 (0-2) /hpf Urine WBC 0-5 (0-3) /hpf Ur Squamous Epith Cells None seen (Few) /hpf Urine Bacteria None seen /hpf Urine Casts 0-2 Discharge Plan Discharge Clinical Impression: Abdominal pain, Nausea & vomiting Patient Disposition: Home Condition: Stable Instructions: Antibiotic Form, Acute Nausea and Vomiting (ED), Abdominal Pain (ED) Additional Instructions: It is recommended that you be on a clear liquid diet for the next 24 hours to rest her bowels. Your given a prescription for a medication to help with abdominal discomfort and also a prescription for nausea medicine that will solve underneath her tongue. Please follow-up with your primary care provider if your symptoms worsen please return to the emergency department. Patient Language: Uruguayan Prescriptions: New dicyclomine 20 mg tablet 20 mg PO QID PRN (Reason: abdominal discomfort) Qty: 20 0RF ondansetron 4 mg tablet,disintegrating 4 mg PO Q8H PRN (Reason: nausea and vomiting) Qty: 10 0RF No Action amoxicillin-pot clavulanate 875-125 mg tablet 1 tablet PO Q12H Qty: 20 0RF amoxicillin-pot clavulanate 875-125 mg tablet 1 tablet PO Q12H Qty: 20 0RF Follow-up/Referrals: PHYSICIAN,CREDIT ASSESSMENT ANALYST [Primary Care Provider] - Randy Kiran MD [Physician] - Time of Disposition: 06:45
--- NOTE | 2025-01-16 02:59 | PC.NURSE ---
Pt presents to ED c/o 07/17 abdominal pain and n/v, onset last night. Per pt has been unable to keep anything down since yesterday, visited a hospital 3 days ago for the same reason but left AMA. Pt endorses fentanyl use earlier today unable to provided time and amount. Pt appears diaphoretic and tachycardiac upon roomed. Pt placed on monitoring coordinator, continuos pulse oximeter and blood drawn.
--- NOTE | 2025-01-16 03:22 | PC.NURSE ---
pt taken to CT
--- NOTE | 2025-01-16 03:28 | PC.NURSE ---
pt returned from CT
[2025-01-16 06:07] LABS: Add Urine Microscopic? YES; Appearance Urine Clear (Clear); Bacteria Urine None Seen /hpf; Bilirubin Urine Negative (Negative); Blood Urine Negative (Negative); Color Urine Yellow (Yellow); Glucose Urine UA Negative (Negative); Ketones Urine 3+ mg/dL (Negative); Leukocyte Esterase Ur Negative LEU/UL (Negative); Nitrate Urine Negative (Negative); Non Pathogenic Casts 0-2; Protein Urine 1+ mg/dL (Negative); RBC Urine 0-2 /hpf (0-2); Specific Grav Ur > 1.045 (1.001-1.035); Squamous Epithelial Cell Urine None Seen /hpf (Few); WBC Urine 0-5 /hpf (0-3)
[2025-01-16] MEDS: DICYCLOMINE HCL INJ 20 MG/2 ML VIAL IM (06:57)
[2025-01-16 07:34] LABS: Influenza A QL RT-PCR Negative (Negative); Influenza B QL RT-PCR Negative (Negative); RSV RNA, RT-PCR Negative (Negative); SARS-CoV-2 RNA PCR Negative (Negative)
== END 2025-01-16 08:07 | disposition home or self-care (01) ==
PROVIDERS: Student in an Organized Health Care Education/Training Program; Emergency Provider Emergency Medicine
DX: R11.2 Nausea with vomiting, unspecified (principal); R10.9 Unspecified abdominal pain; J45.909 Unspecified asthma, uncomplicated; F17.210 Nicotine dependence, cigarettes, uncomplicated
CPT/HCPCS: 36415; 74177; 80053; 81001; 83690; 85025; 87637; 96361; 96372; 96374; 96375; 99284; J0500; J2405; J7030; Q9967

== ENCOUNTER 2025-02-22 12:17 | Emergency (ER) | payer BC, SELFPAY ==
[2025-02-22 12:21] VITALS: BP 168/99; PULSE 120; RESP 16; TEMP 36.7; O2SAT 99
--- OUTSIDE RECORDS SUMMARY | 2025-02-22 12:21 | XMS_ITS | Clinical Summary ---
Author Organization [facility] Address [address] [place] [id number] Care Team Providers Care Sheet Sewer Name Role Phone Unavailable Primary Care Provider [...] 5 Years) and At-Risk Patients (6 to 49 Years) Aged Out No longer eligible b ased on patient's age to complete this topic RSV Immunizations Under 20 Months Aged Out No longer eligible based on patient's age to complete this topic
--- OUTSIDE RECORDS SUMMARY | 2025-02-22 12:21 | XMS_ITS | Clinical Summary ---
Author Organization [facility] [employer] Address [address] [facility] [place] [address] Care Team Providers Care Marker Maker Name Role Phone Unavailable Primary Care Provider Unavailabl e Source Comments [facility] [employer],non-owned Affiliates and Associated Physician Practices is amultiple site organization consisting of ambulatory clinics and hospital sitesin [place], [place], [place] and [place]. This disclosure is being madepursuant to the Care Everywhere program and may not contain all information available regarding this patient. Last updated 18.[facility] [employer] Social History Tobacco Use Types Packs/Day Years Used Date Smoking Tobacco: Never Assessed Sex and Gender Information Value Date Recorded Sex Assigned at Not on file Legal Sex Male 5:36 AM BUGGYMAN Gender Identity Not on file Sexual Orientation Not on file Plan of Treatment Health Maintenance Due Date Last Done Comments HIV SCREENING 2010 HEPATITIS C SCREENING 06/14/2013 DTAP/TDAP/TD VACCINES (1 - Tdap) 2014 HEPATITIS B VACCINE (1 of 3 - 19+ 3-dose series) 2014 COVID-19 VACCINE (1 - 2023-2 5 season) 2024 DEPRESSION SCREENING [...]
[2025-02-22 13:00] VITALS: PULSE 83; RESP 19; O2SAT 100
--- OUTSIDE RECORDS SUMMARY | 2025-02-22 13:03 | XMS_ITS | Clinical Summary ---
Author Organization [facility] Address [address] [place] [id number] Care Team Providers Care Radio Equipment Installer Name Role Phone Unavailable Primary Care Provider [...]
--- OUTSIDE RECORDS SUMMARY | 2025-02-22 13:03 | XMS_ITS | Referral Summary ---
Author Organization [facility] [address] [facility] Address [address] [place] [address] Care Team Providers Care Quality Control Expert Name Role Phone Vivien Geronimo Primary Care Provider +1- [phone] Allergies Active Allergy Reactions Criticality Noted Date Comments Ibuprofen Hives Medium 12/09/2019 Medications No known medications Active Problems Problem Noted Date Diagnosed Date BMI 40.0-44.9, adult 12/09/2019 Assessment & Plan (12/09/2019 10:44 AM PASSENGER CAR CONDUCTOR): Obesity is unchanged. Discussed the patient's BMI. The BMI is above average. BMI management plan is completed. BMI Follow-up includes: nutrition counseling, exercise counseling and education provided. Morbid obesity 12/09/2019 Assessment & Plan (12/09/2019 10:44 AM PASSENGER CAR CONDUCTOR): Obesity is unchanged. Discussed the patient's BMI. The BMI is above average. BMI management plan is completed. BMI Follow-up includes: nutrition counseling, exercise counseling and education provided. Positive depression screening 12/09/2019 Assessment & Plan (12/09/2019 8:45 PM PASSENGER CAR CONDUCTOR): Diagnosis is made today. See depression for plan Cigarette smoker 12/09/2019 Assessment & Plan (12/09/2019 8:46 PM PASSENGER CAR CONDUCTOR): Encouraged smoking cessation. Discussed 3 minutes. Reviewed options for assistance with cessation. Reviewed technician terminal and repeater sequela associated with smoking. Pt declines assistance at this time but may contact the office at anytime for further help as they desire. Annual physical exam 12/09/2019 Assessment & Plan (12/09/2019 8:47 PM PASSENGER CAR CONDUCTOR): Encouraged healthy lifestyle, good nutrition and exercise. Encouraged Calcium and Vitamin D and weight bearing exercise for bone health. Reviewed immunizations Reviewed age appropirate screenings. Need for Tdap vaccination 12/09/2019 Assessment & Plan (12/09/2019 8:46 PM PASSENGER CAR CONDUCTOR): Updated in office today Moderate episode of recurrent major depressive d isorder 12/09/2019 Assessment & Plan (12/09/2019 8:46 PM PASSENGER CAR CONDUCTOR): Discussed treatment options including medication, counseling and exercise/diet. He would like to get labs and monitor and discuss again at his next visit. No suicidal or homicidal thoughts. Seems more situational around unemployment and custody. Lipid screening 12/09/2019 Assessment & Plan (12/09/2019 8:47 PM PASSENGER CAR CONDUCTOR): Check labs Diabetes mellitus screening 12/09/2019 Assessment & Plan (12/09/2019 8:47 PM PASSENGER CAR CONDUCTOR): Check labs Other fatigue 12/09/2019 Assessment & Plan (12/09/2019 8:47 PM PASSENGER CAR CONDUCTOR): Probably multifactorial. 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 Last Filed Vital Signs Vital Sign Reading Time Taken Comments Blood Pressure 136/78 12/09/2019 10:40 AM PASSENGER CAR CONDUCTOR Pulse 90 12/09/2019 10:40 AM PASSENGER CAR CONDUCTOR Temperature 37 C (98.6 F) 12/09/2019 10:40 AM PASSENGER CAR CONDUCTOR Respiratory Rate - - Oxygen Saturation 97% 12/09/2019 10: 40 AM PASSENGER CAR CONDUCTOR Inhaled Oxygen Concentration - - Weight 126.3 kg (278 lb 6.4 oz) 020 10:40 AM PASSENGER CAR CONDUCTOR Height 171.5 cm (5' 7.5 ) 12/09/2019 10 :40 AM PASSENGER CAR CONDUCTOR Body Mass Index 42.96 12/09/2019 10:40 AM PASSENGER CAR CONDUCTOR Plan of Treatment Not on file Insurance [facility] [employer] [facility] Care Teams Quality Control Expert Relationship Specialty Start Date End Date Vivien Geronimo PA [address] [facility] [address] [place], [place] [id number] PCP - General Internal Medicine 09/09/19
--- OUTSIDE RECORDS SUMMARY | 2025-02-22 13:03 | XMS_ITS | Clinical Summary ---
Author Organization [facility] [address] [facility] Address [address] [place] [address] Care Team Providers Care Senior Business Broker Name Role Phone Vivien Geronimo Primary Care Provider +1- [phone] Allergies Active Allergy Reactions Criticality Noted Date Comments Ibuprofen Hives Medium 12/09/2019 Medications No known medications Active Problems Problem Noted Date Diagnosed Date BMI 40.0-44.9, adult 12/09/2019 Assessment & Plan (12/09/2019 10:44 AM A OPERATOR): Obesity is unchanged. Discussed the patient's BMI. The BMI is above average. BMI management plan is completed. BMI Follow-up includes: nutrition counseling, exercise counseling and education provided. Morbid obesity 12/09/2019 Assessment & Plan (12/09/2019 10:44 AM A OPERATOR): Obesity is unchanged. Discussed the patient's BMI. The BMI is above average. BMI management plan is completed. BMI Follow-up includes: nutrition counseling, exercise counseling and education provided. Positive depression screening 12/09/2019 Assessment & Plan (12/09/2019 8:45 PM A OPERATOR): Diagnosis is made today. See depression for plan Cigarette smoker 12/09/2019 Assessment & Plan (12/09/2019 8:46 PM A OPERATOR): Encouraged smoking cessation. Discussed 3 minutes. Reviewed options for assistance with cessation. Reviewed technician terminal and repeater sequela associated with smoking. Pt declines assistance at this time but may contact the office at anytime for further help as they desire. Annual physical exam 12/09/2019 Assessment & Plan (12/09/2019 8:47 PM A OPERATOR): Encouraged healthy lifestyle, good nutrition and exercise. Encouraged Calcium and Vitamin D and weight bearing exercise for bone health. Reviewed immunizations Reviewed age appropirate screenings. Need for Tdap vaccination 12/09/2019 Assessment & Plan (12/09/2019 8:46 PM A OPERATOR): Updated in office today Moderate episode of recurrent major depressive d isorder 12/09/2019 Assessment & Plan (12/09/2019 8:46 PM A OPERATOR): Discussed treatment options including medication, counseling and exercise/diet. He would like to get labs and monitor and discuss again at his next visit. No suicidal or homicidal thoughts. Seems more situational around unemployment and custody. Lipid screening 12/09/2019 Assessment & Plan (12/09/2019 8:47 PM A OPERATOR): Check labs Diabetes mellitus screening 12/09/2019 Assessment & Plan (12/09/2019 8:47 PM A OPERATOR): Check labs Other fatigue 12/09/2019 Assessment & Plan (12/09/2019 8:47 PM A OPERATOR): Probably multifactorial. 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 Obstetrics History Last Filed Vital Signs Vital Sign Reading Time Taken Comments Blood Pressure 136/78 12/09/2019 10:40 AM A OPERATOR Pulse 90 12/09/2019 10:40 AM A OPERATOR Temperature 37 C (98.6 F) 12/09/2019 10:40 AM A OPERATOR Respiratory Rate - - Oxygen Saturation 97% 12/09/2019 10: 40 AM A OPERATOR Inhaled Oxygen Concentration - - Weight 126.3 kg (278 lb 6.4 oz) 020 10:40 AM A OPERATOR Height 171.5 cm (5' 7.5 ) 12/09/2019 10 :40 AM A OPERATOR Body Mass Index 42.96 12/09/2019 10:40 AM A OPERATOR Plan of Treatment Not on file Insurance [facility] [place] [id number] Care Teams Senior Business Broker Relationship Specialty Start Date End Date Vivien Geronimo PA [address] [facility] [address] [place] [address] PCP - General Internal Medicine 09/09/19
--- OUTSIDE RECORDS SUMMARY | 2025-02-22 13:03 | XMS_ITS | Clinical Summary ---
Author Organization [facility] [employer] Address [address] [facility] [place] [address] Care Team Providers Care Counter Control Operator Name Role Phone Unavailable Primary Care Provider Unavailabl e Source Comments [facility] [employer],non-owned Affiliates and Associated Physician Practices is amultiple site organization consisting of ambulatory clinics and hospital sitesin [place], [place], [place] and [place]. This disclosure is being madepursuant to the Care Everywhere program and may not contain all information available regarding this patient. Last updated 18.[facility] [employer] Social History Tobacco Use Types Packs/Day Years Used Date Smoking Tobacco: Never Assessed Sex and Gender Information Value Date Recorded Sex Assigned at Not on file Legal Sex Male 5:36 AM GEOLOGICAL SCOUT Gender Identity Not on file Sexual Orientation [...]
[2025-02-22 13:09] LABS: Basophils Percent Auto 0.2 % (0.2-1.2); Eosinophils Percent Auto 0.1 % (0-4.4); Hematocrit 47.9 % (42.0-52.0); Hemoglobin 16.8 g/dL (14.0-18.0); Immature Granulocyte Absolute 0.08 K/mm3 (0.00-0.031); Immature Granulocyte Percent A 0.5 % (0-0.5); Lymphocytes Absolute Auto 1.26 K/mm3 (0.9-3.2); Lymphocytes Percent Auto 7.3 % (18.3-44.2); Mean Corpuscular HGB Conc 35.1 g/dl (32-36); Mean Corpuscular Hemoglobin 29.1 pg (26-34); Mean Platelet Volume 9.9 fl (7.4-10.4); Monocytes Absolute Auto 0.7 K/mm3 (0.1-0.6); Neutrophils Absolute Auto 15.2 K/mm3 (1.3-6.7); Neutrophils Percent Auto 87.9 % (45.5-73.1); Platelet Count Result 391 k/mm3 (150-375); Red Blood Count 5.77 M/mm3 (4.6-6.20); Red Cell Distribution Width 13.2 % (11.5-14.5); White Blood Count 17.3 K/mm3 (4.5-10.0)
--- NOTE | 2025-02-22 13:12 | ED.ABDPAIN ---
HPI - Abdominal Pain General Chief Complaint: Abdominal Pain Stated Complaint: N/V, upper abd. pain Time Seen by Provider: 02/22/25 12:43 Source: patient Mode of arrival: ambulatory Limitations: no limitations History of Present Illness HPI narrative: Patient presents with report epigastric/upper abdominal pain as well as nausea vomiting 4 days duration. He describes a burning sensation in his upper abdomen. He has had approximately 10 episodes of emesis the past 24 hours but does not believe it has been bloody. He does use fentanyl in marijuana daily. He snorts fat including last use this morning. He believes that the fentanyl that he gets is the problem as he believes it is contaminated/tainted/not pure. He denies any radiating pain including not towards his back or up into Chest or down into groin. His last bowel movement was a few days ago. He states at baseline he is intermittently constipated. He denies any bloody bowel movements. He states the symptoms have happened before including presenting to the emergency department twice already he in the past 2 months for this issue. He does not have primary care physician never EGD. At home he trial Pepto-Bismol and has been trying to drink water but cannot keep it down. No previous abdominal surgeries. Related Data Allergies Allergy/AdvReac Type Severity Reaction Status Date / Time No Known Allergies Allergy Verified 01/15/25 21:15 PMFSH Past Medical History Medical History Opiate dependence Marijuana use Asthma Social History Social History Smoking status: Current every day smoker Tobacco type: cigarettes Substance use: current Substance use type: marijuana and opiates Gender identity (if verbalized by the patient): Male Sexual Orientation (if Verbalized by the Patient): Straight or Heterosexual Exam Narrative: GENERAL: well-nourished. HEAD: Normocephalic, atraumatic. EYES: Non injected, non icteric ENT: Nares clear, no rhinorrhea or epistaxis. Tacky mucous membranes with a white film on tongue NECK: Supple. CHEST: Speaking in full sentences. No respiratory distress. HEART: Tachycardic rate and rhythm. . ABDOMEN: Obese but Soft, nondistended. Mild tenderness to palpation in the left lower quadrant as well as right upper quadrant, left upper quadrant and epigastrium but without rigidity or guarding. Not peritoneal. EXTREMITIES: Normal range of motion. No lower extremity edema. SKIN: Warm, dry, no rash. NEURO: No focal deficits. Alert and oriented x3. PSYCH: Normal mood and affect. Course Vital Signs Vital signs: Vital Signs Temperature 98.1 F 02/22/25 12:21 Pulse Rate 120 H 02/22/25 12:21 Respiratory Rate 16 02/22/25 12:21 Blood Pressure 168/99 H 02/22/25 12:21 Pulse Oximetry 99 02/22/25 12:21 Oxygen Delivery Room Air 02/22/25 12:21 Temperature 98.1 F 02/22/25 12:21 Pulse Rate 88 02/22/25 16:58 Respiratory Rate 18 02/22/25 16:58 Blood Pressure 144/92 H 02/22/25 16:58 Pulse Oximetry 98 02/22/25 16:58 Oxygen Delivery Room Air 02/22/25 12:21 MDM - Abdominal Pain MDM Narrative Medical decision making narrative: Patient presents with epigastric abdominal pain as as nausea and vomiting 4 days duration. He uses fentanyl with her 1 daily and believes the fentanyl may be cause of his symptoms as his source is not reliable and he believes contaminated/not pure. In the emergency department he is afebrile vital signs notable initially for tachycardia although resolved on repeat without interval intervention. He is also hypertensive. Patient seen for this previously on 01/07/2025 as well as 01/16/2025. He had CT scans performed both days which were unremarkable/normal. Given this, although slightly tender to palpation (LLQ and RUQ/LUQ, epigastrium), will initially defer repeating CT imaging at this time and trial medications and rehydration and reassess. Patient's leukocytosis is previously seen, chronic and stable. Anion gap but no acidosis and no hyperglycemia. Likely a slight degree of starvation. UDS positive for cannabinoids and cocaine metabolite. Urinalysis with 3+ ketonuria. He has already received 1L IV fluids in addition to antiemetics as well as combination Haldol and diphenhydramine. Patient reassessed at 2:00 p.m. and states that his nausea, vomiting, pain are improving, they are moving in the right direction but not quite resolved. Will re-dose both Haldol diphenhydramine. Patient reassessed at 3:30 p.m.. He states his nausea and pain have resolved and he has not vomited since being in the emergency department. His abdominal exam is performed again and he has a soft nontender abdomen. Not peritoneal. Because he does not primary care physician he will be provided referral/contact information for 1. Patient denies working today or tomorrow and is not need of a work note as result. Differential Diagnosis Differential diagnosis: Likely abdominal pain, constipation, gastroenteritis, pancreatitis and other (Cannabinoid hyperemesis syndrome, gastritis) Lab Data Attestation: I reviewed the patient's lab results. Lab results narrative: Lipase is low/normal. Isolated ALT elevation. Normal renal function. 02/22/25 13:03 02/22/25 13:03 Labs: Lab Results 02/22/25 02/22/25 Range/Units 13:03 13:12 WBC 17.3 H (4.5-10.0) K/mm3 RBC 5.77 (4.6-6.20) M/mm3 Hgb 16.8 (14.0-18.0) g/dL Hct 47.9 (42.0-52.0) % MCV 83.0 (80-100) fl MCH 29.1 (26-34) pg MCHC 35.1 (32-36) g/dl RDW 13.2 (11.5-14.5) % Plt Count 391 H (150-375) k/mm3 MPV 9.9 (7.4-10.4) fl Immature Gran % (Auto) 0.5 (0-0.5) % Neut % (Auto) 87.9 H (45.5-73.1) % Lymph % (Auto) 7.3 L (18.3-44.2) % Traverse % (Auto) 4.0 (2.6-8.5) % Eos % (Auto) 0.1 (0-4.4) % Baso % (Auto) 0.2 (0.2-1.2) % Lymph # (Auto) 1.26 (0.9-3.2) K/mm3 Traverse # (Auto) 0.7 H (0.1-0.6) K/mm3 Eos # (Auto) 0.0 (0-0.3) K/mm3 Baso # (Auto) 0.0 (0.0-0.1) K/mm3 Abs Immat Gran (auto) 0.08 H (0.00-0.031) K/mm3 Absolute Neuts (auto) 15.2 H (1.3-6.7) K/mm3 Absolute Nucleated RBC 0.000 (0.0-0.012) K/mm3 Nucleated RBC % 0.0 (0.0-0.2) % Sodium 142 (137-145) mmol/L Potassium 3.7 (3.4-5.0) mmol/L Chloride 100 (98-107) mmol/L Carbon Dioxide 29 (22-30) mmol/L Anion Gap 13 H (4-12) mmol/L BUN 8 L (9-20) mg/dL Creatinine 0.68 L (0.7-1.3) mg/dL Estim Creat Clear Calc 168 ml/min Estimated GFR > 60 (59 - ) Glucose 111 H (65-110) mg/dL Calcium 10.2 (8.4-10.2) mg/dL Total Bilirubin 0.8 (0.2-1.3) mg/dL AST 45 (17-59) U/L ALT 67 H (6-50) U/L Alkaline Phosphatase 74 (38-126) U/L Total Protein 8.0 (6.3-8.2) g/dL Albumin 4.8 (3.5-5.1) g/dL Lipase 20 L (23-300) U/L Urine Color Yellow (Yellow) Urine Appearance Clear (Clear) Urine pH 8.5 (5.0-9.0) Ur Specific Dawson 1.029 (1.001-1.035) Urine Protein 1+ H (Negative) mg/dL Urine Glucose (UA) Negative (Negative) mg/dL Urine Ketones 3+ H (Negative) mg/dL Ur Blood (Man) Negative (Negative) Urine Nitrate Negative (Negative) Urine Bilirubin Negative (Negative) Urine Urobilinogen 1.0 (<2.0) mg/dL Leukocyte Esterase Rfl Trace H (Negative) JOSEP/UL Urine RBC 0-2 (0-2) /hpf Urine WBC 0-5 (0-3) /hpf Ur Squamous Epith Cells None seen (Few) /hpf Urine Bacteria None seen /hpf Urine Casts 0-2 Urine Opiates Screen Negative (Negative) Urine Methadone Screen Negative (Negative) Ur Barbiturates Screen Negative (Negative) Ur Phencyclidine Scrn Negative (Negative) Ur Amphetamine Screen Negative (Negative) U Benzodiazepines Scrn Negative (Negative) Urine Cocaine Screen Positive A (Negative) U Cannabinoids Screen Positive A (Negative) Discharge Plan Discharge Clinical Impression: Leukocytosis, Abdominal pain, epigastric, Nausea & vomiting, Active substance abuse, Elevated ALT measurement Patient Disposition: Home Condition: Stable Instructions: Antibiotic Form, Acute Nausea and Vomiting (DC), Leukocytosis (ED), Cannabis Use Disorder (ED), Polysubstance Use Disorder (ED), Epigastric Pain (ED), Narcotic Use Disorder (ED) Additional Instructions: I am reassured that your feeling better after fluids and medicine. You were concerned about this being due to substances you use and this is likely. You did test positive for cocaine metabolites which may have been a contaminant. The marijuana use can also cause a condition known as cannabinoid hyperemesis syndrome and I urge you to read about this condition. Trial cessation of these recreational/ illegal substances to see if symptoms improve, especially because you have required multiple presentations to the ED for this. Because you do not have a primary care physician the name of a doctor is listed below for follow-up/establishing for future/further care. Return to the emergency department any new or worsening symptoms. You can try to use the prescribed oral disintegrating tablets ondansetron/Zofran for nausea and vomiting but they do not address the root causes of your issue. Patient Language: Citizen Of [place] Prescriptions: New ondansetron 4 mg tablet,disintegrating 4 mg PO Q8H PRN (Reason: nausea and vomiting) Qty: 7 0RF No Action amoxicillin-pot clavulanate 875-125 mg tablet 1 tablet PO Q12H Qty: 20 0RF amoxicillin-pot clavulanate 875-125 mg tablet 1 tablet PO Q12H Qty: 20 0RF dicyclomine 20 mg tablet 20 mg PO QID PRN (Reason: abdominal discomfort) Qty: 20 0RF ondansetron 4 mg tablet,disintegrating 4 mg PO Q8H PRN (Reason: nausea and vomiting) Qty: 10 0RF Follow-up/Referrals: PHYSICIAN,IMMIGRATION SPECIALIST [Primary Care Provider] - Randy Kiran MD [Physician] - Time of Disposition: 15:44
[2025-02-22 13:20] LABS: Alanine Aminotransferase 67 U/L (6-50); Albumin Level 4.8 g/dL (3.5-5.1); Alkaline Phosphatase 74 U/L (38-126); Anion Gap 13 mmol/L (4-12); Aspartate Amino Transferase 45 U/L (17-59); Bilirubin,Total 0.8 mg/dL (0.2-1.3); Blood Urea Nitrogen 8 mg/dL (9-20); Calcium 10.2 mg/dL (8.4-10.2); Carbon Dioxide 29 mmol/L (22-30); Chloride 100 mmol/L (98-107); Estimated CRCL calculation 168 ml/min; Estimated Glomerular Filt Rate > 60; Glucose 111 mg/dL (65-110); Lipase 20 U/L (23-300); Potassium 3.7 mmol/L (3.4-5.0); Sodium 142 mmol/L (137-145)
[2025-02-22] MEDS: SODIUM CHLORIDE 0.9% IV 1,000 ML 999 ML IV CONT (13:32)
[2025-02-22] MEDS: ONDANSETRON INJ 4 MG/2 ML VIAL IV PUSH (13:33)
[2025-02-22] MEDS: FAMOTIDINE 20 MG/2 ML VIAL IV PUSH (13:34)
[2025-02-22] MEDS: diphenhydrAMINE HCl INJ 50 MG/ML VIAL 25 MG IV PUSH ×2 (13:34→15:03)
[2025-02-22] MEDS: HALOPERIDOL LACTATE 5 MG/ML VIAL 2.5 MG IV PUSH ×2 (13:36→15:04)
[2025-02-22 13:39] LABS: Amphetamine Screen Urine Negative (Negative); Barbiturate Screen Urine Negative (Negative); Benzodiazepines Screen Urine Negative (Negative); Cannabinoid Screen Urine Positive (Negative); Cocaine Screen Urine Positive (Negative); Methadone Screen Urine Negative (Negative); Opiate Screen Urine Negative (Negative); Phencyclidine Screen Urine Negative (Negative)
[2025-02-22 13:41] VITALS: BP 159/86; PULSE 94; RESP 14; O2SAT 99
[2025-02-22 13:41] LABS: Add Urine Microscopic? YES; Appearance Urine Clear (Clear); Bacteria Urine None Seen /hpf; Bilirubin Urine Negative (Negative); Blood Urine Negative (Negative); Color Urine Yellow (Yellow); Glucose Urine UA Negative (Negative); Ketones Urine 3+ mg/dL (Negative); Leukocyte Esterase Ur Trace LEU/UL (Negative); Nitrate Urine Negative (Negative); Non Pathogenic Casts 0-2; Protein Urine 1+ mg/dL (Negative); RBC Urine 0-2 /hpf (0-2); Specific Grav Ur 1.029 (1.001-1.035); Squamous Epithelial Cell Urine None Seen /hpf (Few); WBC Urine 0-5 /hpf (0-3); pH Urine 8.5 (5.0-9.0)
[2025-02-22 15:02] VITALS: BP 168/76; PULSE 104; RESP 18; O2SAT 98
[2025-02-22 16:58] VITALS: BP 144/92; PULSE 88; RESP 18; O2SAT 98
== END 2025-02-22 16:58 | disposition home or self-care (01) ==
PROVIDERS: Emergency Provider Student in an Organized Health Care Education/Training Program
DX: R10.13 Epigastric pain (principal); R11.2 Nausea with vomiting, unspecified; D72.829 Elevated white blood cell count, unspecified; R74.01 Elevation of levels of liver transaminase levels; F14.10 Cocaine abuse, uncomplicated; F11.10 Opioid abuse, uncomplicated; F12.10 Cannabis abuse, uncomplicated; J45.909 Unspecified asthma, uncomplicated; F17.210 Nicotine dependence, cigarettes, uncomplicated
CPT/HCPCS: 36415; 80053; 80307; 81001; 83690; 85025; 96361; 96374; 96375; 96376; 99284; J1200; J1630; J2405; J7030

== ENCOUNTER 2025-04-14 22:07 | Emergency (ER) | payer SELFPAY ==
--- OUTSIDE RECORDS SUMMARY | 2025-04-14 22:09 | XMS_ITS | Clinical Summary ---
Author Organization [email or web address] Address [address] [place] [address] Care Team Providers Care Industrial Registered Nurse Name Role Phone Unavailable Primary Care Provider Unavailabl e Source Comments [email or web address],non-owned Affiliates and Associated Physician Practices is amultiple site organization consisting of ambulatory clinics and hospital sitesin [place], [place], [place] and [place]. This disclosure is being madepursuant to the Care Everywhere program and may not contain all information available regarding this patient. 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
--- OUTSIDE RECORDS SUMMARY | 2025-04-14 22:09 | XMS_ITS | Clinical Summary ---
Author Organization [facility] Address [address] [place] [id number] Care Team Providers Care City Alderman Name Role Phone Unavailable Primary Care Provider [...]
[2025-04-14 22:16] VITALS: BP 147/109; PULSE 128; RESP 20; TEMP 37.1; O2SAT 98
[2025-04-14 22:34] VITALS: BP 160/102; PULSE 117; RESP 24; TEMP 36.4; O2SAT 100
[2025-04-14 22:36] VITALS: BP 142/98; PULSE 113
[2025-04-14 22:38] VITALS: BP 134/88; PULSE 137
[2025-04-14 22:40] VITALS: BP 111/67; PULSE 162
[2025-04-14 22:47] LABS: Hematocrit 52.6 % (42.0-52.0); Hemoglobin 18.5 g/dL (14.0-18.0); Immature Granulocyte Percent A 0.4 % (0-0.5); Lymphocytes Absolute Auto 1.50 K/mm3 (0.9-3.2); Mean Corpuscular HGB Conc 35.2 g/dl (32-36); Mean Corpuscular Hemoglobin 28.9 pg (26-34); Mean Corpuscular Volume 82.1 fl (80-100); Nucleated Red Blood Cells Absolute Auto 0.000 K/mm3 (0.0-0.012); Nucleated Red Blood Cells Perc 0.0 % (0.0-0.2); Platelet Count Result 325 k/mm3 (150-375); Red Blood Count 6.41 M/mm3 (4.6-6.20); White Blood Count 15.9 K/mm3 (4.5-10.0)
[2025-04-14 23:01] LABS: Add Urine Microscopic? YES; Appearance Urine Clear (Clear); Glucose Urine UA Negative (Negative); Leukocyte Esterase Ur Trace LEU/UL (Negative); Nitrate Urine Negative (Negative); Non Pathogenic Casts 0-2; Specific Grav Ur 1.031 (1.001-1.035)
[2025-04-14 23:07] LABS: Alanine Aminotransferase 93 U/L (6-50); Albumin Level 5.0 g/dL (3.5-5.1); Alkaline Phosphatase 71 U/L (38-126); Anion Gap 14 mmol/L (4-12); Aspartate Amino Transferase 59 U/L (17-59); Bilirubin,Total 0.8 mg/dL (0.2-1.3); Blood Urea Nitrogen 11 mg/dL (9-20); Calcium 10.4 mg/dL (8.4-10.2); Carbon Dioxide 25 mmol/L (22-30); Chloride 101 mmol/L (98-107); Estimated CRCL calculation 138 ml/min; Estimated Glomerular Filt Rate > 60; Glucose 131 mg/dL (65-110); Lipase 31 U/L (23-300); Magnesium 1.7 mg/dL (1.6-2.3); Potassium 4.2 mmol/L (3.4-5.0); Sodium 140 mmol/L (137-145); Total Protein 9.1 g/dL (6.3-8.2)
--- NOTE | 2025-04-14 23:14 | PC.NURSE ---
Report taken from Dorothy PEPPER.
[2025-04-14 23:23] VITALS: BP 138/82; PULSE 105; RESP 16; O2SAT 98
[2025-04-14] MEDS: ONDANSETRON INJ 4 MG/2 ML VIAL IV PUSH (23:26)
[2025-04-14] MEDS: SODIUM CHLORIDE 0.9% IV 1,000 ML 999 ML IV CONT (23:26)
--- OUTSIDE RECORDS SUMMARY | 2025-04-14 23:47 | XMS_ITS | Clinical Summary ---
Author Organization [facility] [address] [facility] Address [address] [place] [address] Care Team Providers Care Triple Air Valve Tester Name Role Phone Vivien Greonimo Primary Care Provider [phone]- [phone] Allergies Active Allergy Reactions Criticality Noted Date Comments Ibuprofen Hives Medium 12/09/2019 Medications No known medications Active Problems Problem Noted Date Diagnosed Date BMI 40.0-44.9, adult 12/09/2019 Assessment & Plan (12/09/2019 10:44 AM FAMILY PRACTICE DOCTOR): Obesity is unchanged. Discussed the patient's BMI. The BMI is above average. BMI management plan is completed. BMI Follow-up includes: nutrition counseling, exercise counseling and education provided. Morbid obesity 12/09/2019 Assessment & Plan (12/09/2019 10:44 AM FAMILY PRACTICE DOCTOR): Obesity is unchanged. Discussed the patient's BMI. The BMI is above average. BMI management plan is completed. BMI Follow-up includes: nutrition counseling, exercise counseling and education provided. Positive depression screening 12/09/2019 Assessment & Plan (12/09/2019 8:45 PM FAMILY PRACTICE DOCTOR): Diagnosis is made today. See depression for plan Cigarette smoker 12/09/2019 Assessment & Plan (12/09/2019 8:46 PM FAMILY PRACTICE DOCTOR): Encouraged smoking cessation. Discussed 3 minutes. Reviewed options for assistance with cessation. Reviewed oysterman sequela associated with smoking. Pt declines assistance at this time but may contact the office at anytime for further help as they desire. Annual physical exam 12/09/2019 Assessment & Plan (12/09/2019 8:47 PM FAMILY PRACTICE DOCTOR): Encouraged healthy lifestyle, good nutrition and exercise. Encouraged Calcium and Vitamin D and weight bearing exercise for bone health. Reviewed immunizations Reviewed age appropirate screenings. Need for Tdap vaccination 12/09/2019 Assessment & Plan (12/09/2019 8:46 PM FAMILY PRACTICE DOCTOR): Updated in office today Moderate episode of recurrent major depressive d isorder 12/09/2019 Assessment & Plan (12/09/2019 8:46 PM FAMILY PRACTICE DOCTOR): Discussed treatment options including medication, counseling and exercise/diet. He would like to get labs and monitor and discuss again at his next visit. No suicidal or homicidal thoughts. Seems more situational around unemployment and custody. Lipid screening 12/09/2019 Assessment & Plan (12/09/2019 8:47 PM FAMILY PRACTICE DOCTOR): Check labs Diabetes mellitus screening 12/09/2019 Assessment & Plan (12/09/2019 8:47 PM FAMILY PRACTICE DOCTOR): Check labs Other fatigue 12/09/2019 Assessment & Plan (12/09/2019 8:47 PM FAMILY PRACTICE DOCTOR): Probably multifactorial. 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 Not on file Obstetrics History Last Filed Vital Signs Vital Sign Reading Time Taken Comments Blood Pressure 136/78 12/09/2019 10:40 AM FAMILY PRACTICE DOCTOR Pulse 90 12/09/2019 10:40 AM FAMILY PRACTICE DOCTOR Temperature 37 C (98.6 F) 12/09/2019 10:40 AM FAMILY PRACTICE DOCTOR Respiratory Rate - - Oxygen Saturation 97% 12/09/2019 10: 40 AM FAMILY PRACTICE DOCTOR Inhaled Oxygen Concentration - - Weight 126.3 kg (278 lb 6.4 oz) 020 10:40 AM FAMILY PRACTICE DOCTOR Height 171.5 cm (5' 7.5) 12/09/2019 10 :40 AM FAMILY PRACTICE DOCTOR Body Mass Index 42.96 12/09/2019 10:40 AM FAMILY PRACTICE DOCTOR Plan of Treatment Not on file Insurance [facility] [place] [id number] Care Teams Triple Air Valve Tester Relationship Specialty Start Date End Date Vivien Geronimo PA [address] [facility] [address] [place] [address] PCP - General Internal Medicine 09/09/19
--- OUTSIDE RECORDS SUMMARY | 2025-04-14 23:47 | XMS_ITS | Clinical Summary ---
Author Organization [facility] Address [address] [place] [id number] Care Team Providers Care Beam Sealer Name Role Phone Unavailable Primary Care Provider [...]
--- OUTSIDE RECORDS SUMMARY | 2025-04-14 23:47 | XMS_ITS | Referral Summary ---
Author Organization [facility] [address] [facility] Address [address] [place] [address] Care Team Providers Care Lvn Name Role Phone Vivien Geronimo Primary Care Provider +1- [phone] Allergies Active Allergy Reactions Criticality Noted Date Comments Ibuprofen Hives Medium 12/09/2019 Medications No known medications Active Problems Problem Noted Date Diagnosed Date BMI 40.0-44.9, adult 12/09/2019 Assessment & Plan (12/09/2019 10:44 AM DIGITAL MARKETING ANALYST): Obesity is unchanged. Discussed the patient's BMI. The BMI is above average. BMI management plan is completed. BMI Follow-up includes: nutrition counseling, exercise counseling and education provided. Morbid obesity 12/09/2019 Assessment & Plan (12/09/2019 10:44 AM DIGITAL MARKETING ANALYST): Obesity is unchanged. Discussed the patient's BMI. The BMI is above average. BMI management plan is completed. BMI Follow-up includes: nutrition counseling, exercise counseling and education provided. Positive depression screening 12/09/2019 Assessment & Plan (12/09/2019 8:45 PM DIGITAL MARKETING ANALYST): Diagnosis is made today. See depression for plan Cigarette smoker 12/09/2019 Assessment & Plan (12/09/2019 8:46 PM DIGITAL MARKETING ANALYST): Encouraged smoking cessation. Discussed 3 minutes. Reviewed options for assistance with cessation. Reviewed termite treater sequela associated with smoking. Pt declines assistance at this time but may contact the office at anytime for further help as they desire. Annual physical exam 12/09/2019 Assessment & Plan (12/09/2019 8:47 PM DIGITAL MARKETING ANALYST): Encouraged healthy lifestyle, good nutrition and exercise. Encouraged Calcium and Vitamin D and weight bearing exercise for bone health. Reviewed immunizations Reviewed age appropirate screenings. Need for Tdap vaccination 12/09/2019 Assessment & Plan (12/09/2019 8:46 PM DIGITAL MARKETING ANALYST): Updated in office today Moderate episode of recurrent major depressive d isorder 12/09/2019 Assessment & Plan (12/09/2019 8:46 PM DIGITAL MARKETING ANALYST): Discussed treatment options including medication, counseling and exercise/diet. He would like to get labs and monitor and discuss again at his next visit. No suicidal or homicidal thoughts. Seems more situational around unemployment and custody. Lipid screening 12/09/2019 Assessment & Plan (12/09/2019 8:47 PM DIGITAL MARKETING ANALYST): Check labs Diabetes mellitus screening 12/09/2019 Assessment & Plan (12/09/2019 8:47 PM DIGITAL MARKETING ANALYST): Check labs Other fatigue 12/09/2019 Assessment & Plan (12/09/2019 8:47 PM DIGITAL MARKETING ANALYST): Probably multifactorial. 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 Last Filed Vital Signs Vital Sign Reading Time Taken Comments Blood Pressure 136/78 12/09/2019 10:40 AM DIGITAL MARKETING ANALYST Pulse 90 12/09/2019 10:40 AM DIGITAL MARKETING ANALYST Temperature 37 C (98.6 F) 12/09/2019 10:40 AM DIGITAL MARKETING ANALYST Respiratory Rate - - Oxygen Saturation 97% 12/09/2019 10: 40 AM DIGITAL MARKETING ANALYST Inhaled Oxygen Concentration - - Weight 126.3 kg (278 lb 6.4 oz) 020 10:40 AM DIGITAL MARKETING ANALYST Height 171.5 cm (5' 7.5) 12/09/2019 10 :40 AM DIGITAL MARKETING ANALYST Body Mass Index 42.96 12/09/2019 10:40 AM DIGITAL MARKETING ANALYST Plan of Treatment Not on file Insurance [facility] [employer] [facility] Care Teams Lvn Relationship Specialty Start Date End Date Vivien Geronimo PA [address] [facility] [address] [place], [place] [id number] PCP - General Internal Medicine 09/09/19
--- OUTSIDE RECORDS SUMMARY | 2025-04-14 23:47 | XMS_ITS | Clinical Summary ---
Author Organization [facility] Address [address] [facility] [place] [address] Care Team Providers Care Director Of Learning Name Role Phone Unavailable Primary Care Provider Unavailabl e Source Comments [facility],non-owned Affiliates and Associated Physician Practices is amultiple site organization consisting of ambulatory clinics and hospital sitesin [place], [place], [place] and [place]. This disclosure is being madepursuant to the Care Everywhere program and may not contain all information available regarding this patient. 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
[2025-04-15 00:14] LABS: Cannabinoid Screen Urine Positive (Negative)
--- NOTE | 2025-04-15 00:22 | ED_ITS ---
HPI - General Adult General Chief complaint: Nausea/Vomiting/Diarrhea Stated complaint: N/V TODAY Time Seen by Provider: 04/14/25 23:13 History of Present Illness HPI narrative: Patient is a 29-year-old male who presents to the emergency department this evening complaining of nausea and vomiting and burning/acid reflux after ingesting fentanyl. Patient states that he snorts the fentanyl and he does use daily. States that this fentanyl was brought from a new individual today so he was not sure if it was laced with anything. States that symptoms began approximately 30 minutes after using. Denies any additional symptoms or concerns at this time. Related Data Allergies Allergy/AdvReac Type Severity Reaction Status Date / Time No Known Allergies Allergy Verified 01/15/25 21:15 Review of Systems 2 Review of Systems: All systems are reviewed and are negative unless stated otherwise in the HPI. [facility] Past Medical History Medical History Opiate dependence Marijuana use Asthma Social History Social History Smoking status: Current every day smoker Tobacco type: cigarettes Substance use: current Substance use type: marijuana and opiates Gender identity (if verbalized by the patient): Male Sexual Orientation (if Verbalized by the Patient): Straight or Heterosexual Exam 2 Narrative: General: Alert, awake, afebrile, in no acute distress. HEENT: PERRL, no rhinorrhea, no post nasal drip, oropharynx clear. Neck: Trachea midline, no JVD, no lymphadenopathy. Cardiovascular: Regular rate and rhythm, no murmurs, rubs or gallops, no peripheral edema. Respiratory: Clear to auscultation bilaterally, no tachypnea, no wheezing, no rhonchi, no rubs, no respiratory distress. Abdomen: Soft, nontender, nondistended, no rebound, no guarding, no peritoneal signs. Musculoskeletal: No joint swelling or deformity, normal muscle tone. Skin: No rashes or petechia, no signs of infection. Psychiatric: Alert and oriented, normal behavior and judgment for situation. Neurological: Alert and oriented to person, place, and time. Follows all commands. No focal deficits, speech is clear and fluent. Course Vital Signs Vital signs: Vital Signs Temperature 98.8 F 04/14/25 22:16 Pulse Rate 128 H 04/14/25 22:16 Respiratory Rate 20 04/14/25 22:16 Blood Pressure 147/109 H 04/14/25 22:16 Pulse Oximetry 98 04/14/25 22:16 Oxygen Delivery Room Air 04/14/25 22:16 Temperature 97.5 F L 04/14/25 22:34 Pulse Rate 105 H 04/14/25 23:23 Respiratory Rate 16 04/14/25 23:23 Blood Pressure 138/82 04/14/25 23:23 Pulse Oximetry 98 04/14/25 23:23 Oxygen Delivery Room Air 04/14/25 22:34 Medical Decision Making MDM Narrative Medical decision making narrative: The patient was evaluated by myself in the emergency department. History is obtained from patient who is an independent historian and physical exam was performed. External medical records were reviewed at this time. IV was established and pertinent tests were ordered. Patient was administered 1 L IV fluid bolus with normal saline and 4 mg IV Zofran. Patient continues complain of nausea at this time his administered 10 mg of IV Reglan and 25 mg of IV Benadryl. He was also administered 20 mg IV Pepcid. Laboratory results obtained revealing leukocytosis of 15 likely reactive, otherwise unremarkable. Urinalysis revealed 1+ ketones otherwise unremarkable. Patient was administered an additional 1 L IV fluid bolus with normal saline at this time. Urine drug screen did return back positive for cannabinoids. Differential diagnosis considerations include polysubstance abuse, acute viral syndrome, dehydration, electrolyte derangements, drug intoxication. Comorbidities impacting this visit include history of polysubstance abuse. I have evaluated and discussed social determinants of health with the patient that could potentially impact subsequent diagnosis and treatment plans. On repeat assessment of the patient, reevaluation revealed that the patient is doing well and is in no acute distress. Patient symptoms have improved since he arrived to our emergency department. Repeat vital signs were all reviewed and noted to be stable. Differential diagnosis and treatment plan were discussed with the patient at bedside. Patient agrees with discussion and after shared medical decision making agrees with discharge. All questions were answered to the patient's satisfaction. Patient will follow up with his PCP in 3-5 days. Script for Zofran was sent to patient's pharmacy to take as needed for nausea/vomiting. Patient was provided with strict return precautions and instructed to return to the emergency department if any new or worsening symptoms develop. The patient was discharged in stable condition. Vital Signs Vital Signs: Vital Signs Temperature 98.8 F 04/14/25 22:16 Pulse Rate 128 H 04/14/25 22:16 Respiratory Rate 20 04/14/25 22:16 Blood Pressure 147/109 H 04/14/25 22:16 Pulse Oximetry 98 04/14/25 22:16 Oxygen Delivery Room Air 04/14/25 22:16 Temperature 97.5 F L 04/14/25 22:34 Pulse Rate 105 H 04/14/25 23:23 Respiratory Rate 16 04/14/25 23:23 Blood Pressure 138/82 04/14/25 23:23 Pulse Oximetry 98 04/14/25 23:23 Oxygen Delivery Room Air 04/14/25 22:34 Lab Data 04/14/25 22:37 04/14/25 22:37 Labs: Lab Results 04/14/25 04/14/25 Range/Units 22:37 22:48 WBC 15.9 H (4.5-10.0) K/mm3 RBC 6.41 H (4.6-6.20) M/mm3 Hgb 18.5 H (14.0-18.0) g/dL Hct 52.6 H (42.0-52.0) % MCV 82.1 (80-100) fl MCH 28.9 (26-34) pg MCHC 35.2 (32-36) g/dl RDW 12.9 (11.5-14.5) % Plt Count 325 (150-375) k/mm3 MPV 10.4 (7.4-10.4) fl Immature Gran % (Auto) 0.4 (0-0.5) % Neut % (Auto) 85.9 H (45.5-73.1) % Lymph % (Auto) 9.4 L (18.3-44.2) % Ada % (Auto) 3.6 (2.6-8.5) % Eos % (Auto) 0.3 (0-4.4) % Baso % (Auto) 0.4 (0.2-1.2) % Lymph # (Auto) 1.50 (0.9-3.2) K/mm3 Ada # (Auto) 0.6 (0.1-0.6) K/mm3 Eos # (Auto) 0.1 (0-0.3) K/mm3 Baso # (Auto) 0.1 (0.0-0.1) K/mm3 Abs Immat Gran (auto) 0.07 H (0.00-0.031) K/mm3 Absolute Neuts (auto) 13.6 H (1.3-6.7) K/mm3 Absolute Nucleated RBC 0.000 (0.0-0.012) K/mm3 Nucleated RBC % 0.0 (0.0-0.2) % Sodium 140 (137-145) mmol/L Potassium 4.2 (3.4-5.0) mmol/L Chloride 101 (98-107) mmol/L Carbon Dioxide 25 (22-30) mmol/L Anion Gap 14 H (4-12) mmol/L BUN 11 (9-20) mg/dL Creatinine 0.87 (0.7-1.3) mg/dL Estim Creat Clear Calc 138 ml/min Estimated GFR > 60 (59 - ) Glucose 131 H (65-110) mg/dL Calcium 10.4 H (8.4-10.2) mg/dL Magnesium 1.7 (1.6-2.3) mg/dL Total Bilirubin 0.8 (0.2-1.3) mg/dL AST 59 (17-59) U/L ALT 93 H (6-50) U/L Alkaline Phosphatase 71 (38-126) U/L Total Protein 9.1 H (6.3-8.2) g/dL Albumin 5.0 (3.5-5.1) g/dL Lipase 31 (23-300) U/L Urine Color Dark yellow (Yellow) Urine Appearance Clear (Clear) Urine pH 7.0 (5.0-9.0) Ur Specific [place] 1.031 (1.001-1.035) Urine Protein 2+ H (Negative) mg/dL Urine Glucose (UA) Negative (Negative) mg/dL Urine Ketones 1+ H (Negative) mg/dL Ur Blood (Man) Negative (Negative) Urine Nitrate Negative (Negative) Urine Bilirubin 1+ H (Negative) Urine Urobilinogen 1.0 (<2.0) mg/dL Leukocyte Esterase Rfl Trace H (Negative) JOSEP/UL Urine RBC 0-2 (0-2) /hpf Urine WBC 0-5 (0-3) /hpf Ur Squamous Epith Cells None seen (Few) /hpf Urine Bacteria None seen /hpf Urine Casts 0-2 Urine Opiates Screen Negative (Negative) Urine Methadone Screen Negative (Negative) Ur Barbiturates Screen Negative (Negative) Ur Phencyclidine Scrn Negative (Negative) Ur Amphetamine Screen Negative (Negative) U Benzodiazepines Scrn Negative (Negative) Urine Cocaine Screen Negative (Negative) U Cannabinoids Screen Positive A (Negative) Discharge Plan Discharge Clinical Impression: Nausea & vomiting, Polysubstance abuse, Dehydration Patient Disposition: Home Condition: Improved Instructions: Antibiotic Form, Dehydration (ED), Acute Nausea and Vomiting (ED), Polysubstance Use Disorder (ED) Additional Instructions: Please follow-up with your family doctor within the next 3-5 days. Return to emergency department if any new or worsening symptoms develop. Use the prescribed Zofran as needed for nausea or vomiting. Patient Language: Sami Prescriptions: New ondansetron 4 mg tablet,disintegrating 4 mg PO Q8H PRN (Reason: nausea and vomiting) Qty: 10 0RF No Action amoxicillin-pot clavulanate 875-125 mg tablet 1 tablet PO Q12H Qty: 20 0RF amoxicillin-pot clavulanate 875-125 mg tablet 1 tablet PO Q12H Qty: 20 0RF dicyclomine 20 mg tablet 20 mg PO QID PRN (Reason: abdominal discomfort) Qty: 20 0RF ondansetron 4 mg tablet,disintegrating 4 mg PO Q8H PRN (Reason: nausea and vomiting) Qty: 10 0RF ondansetron 4 mg tablet,disintegrating 4 mg PO Q8H PRN (Reason: nausea and vomiting) Qty: 7 0RF Follow-up/Referrals: PHYSICIAN,SAFETY DEPOSIT SUPERVISOR [Primary Care Provider] - Randy Kiran MD [Physician] - 3 Days Time of Disposition: 00:24
[2025-04-15] MEDS: METOCLOPRAMIDE HCL INJ 10 MG/2 ML VIAL IV PUSH (00:45)
[2025-04-15] MEDS: FAMOTIDINE 20 MG/2 ML VIAL IV PUSH (00:46)
[2025-04-15] MEDS: SODIUM CHLORIDE 0.9% IV 1,000 ML 999 ML IV CONT (00:48)
== END 2025-04-15 02:11 | disposition home or self-care (01) ==
PROVIDERS: Emergency Provider Emergency Medicine
DX: R11.2 Nausea with vomiting, unspecified (principal); F19.10 Other psychoactive substance abuse, uncomplicated; E86.0 Dehydration; F17.210 Nicotine dependence, cigarettes, uncomplicated; J45.909 Unspecified asthma, uncomplicated
CPT/HCPCS: 36415; 80053; 80307; 81001; 83690; 83735; 85025; 96361; 96374; 96375; 99284; J1200; J2405; J2765; J7030

== ENCOUNTER 2025-05-07 02:47 | Emergency (ER) | payer SELFPAY ==
[2025-05-07] VITALS (9 sets, daily range): BP systolic 149–159; BP diastolic 92–93; PULSE 80–98; RESP 13–18; TEMP 36.6; O2SAT 98–100
--- OUTSIDE RECORDS SUMMARY | 2025-05-07 02:50 | XMS_ITS | Clinical Summary ---
Author Organization [facility] [address] [facility] Address [address] [place] [address] Care Team Providers Care Hardware Developer Name Role Phone Vivien Geronimo Primary Care Provider +1- [phone] Allergies Active Allergy Reactions Criticality Noted Date Comments Ibuprofen Hives Medium 12/09/2019 Medications No known medications Active Problems Problem Noted Date Diagnosed Date BMI 40.0-44.9, adult 12/09/2019 Assessment & Plan (12/09/2019 10:44 AM FRUIT PRESS OPERATOR): Obesity is unchanged. Discussed the patient's BMI. The BMI is above average. BMI management plan is completed. BMI Follow-up includes: nutrition counseling, exercise counseling and education provided. Morbid obesity 12/09/2019 Assessment & Plan (12/09/2019 10:44 AM FRUIT PRESS OPERATOR): Obesity is unchanged. Discussed the patient's BMI. The BMI is above average. BMI management plan is completed. BMI Follow-up includes: nutrition counseling, exercise counseling and education provided. Positive depression screening 12/09/2019 Assessment & Plan (12/09/2019 8:45 PM FRUIT PRESS OPERATOR): Diagnosis is made today. See depression for plan Cigarette smoker 12/09/2019 Assessment & Plan (12/09/2019 8:46 PM FRUIT PRESS OPERATOR): Encouraged smoking cessation. Discussed 3 minutes. Reviewed options for assistance with cessation. Reviewed technician terminal and repeater sequela associated with smoking. Pt declines assistance at this time but may contact the office at anytime for further help as they desire. Annual physical exam 12/09/2019 Assessment & Plan (12/09/2019 8:47 PM FRUIT PRESS OPERATOR): Encouraged healthy lifestyle, good nutrition and exercise. Encouraged Calcium and Vitamin D and weight bearing exercise for bone health. Reviewed immunizations Reviewed age appropirate screenings. Need for Tdap vaccination 12/09/2019 Assessment & Plan (12/09/2019 8:46 PM FRUIT PRESS OPERATOR): Updated in office today Moderate episode of recurrent major depressive d isorder 12/09/2019 Assessment & Plan (12/09/2019 8:46 PM FRUIT PRESS OPERATOR): Discussed treatment options including medication, counseling and exercise/diet. He would like to get labs and monitor and discuss again at his next visit. No suicidal or homicidal thoughts. Seems more situational around unemployment and custody. Lipid screening 12/09/2019 Assessment & Plan (12/09/2019 8:47 PM FRUIT PRESS OPERATOR): Check labs Diabetes mellitus screening 12/09/2019 Assessment & Plan (12/09/2019 8:47 PM FRUIT PRESS OPERATOR): Check labs Other fatigue 12/09/2019 Assessment & Plan (12/09/2019 8:47 PM FRUIT PRESS OPERATOR): Probably multifactorial. 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 Not on file Obstetrics History Last Filed Vital Signs Vital Sign Reading Time Taken Comments Blood Pressure 136/78 12/09/2019 10:40 AM FRUIT PRESS OPERATOR Pulse 90 12/09/2019 10:40 AM FRUIT PRESS OPERATOR Temperature 37 C (98.6 F) 12/09/2019 10:40 AM FRUIT PRESS OPERATOR Respiratory Rate - - Oxygen Saturation 97% 12/09/2019 10: 40 AM FRUIT PRESS OPERATOR Inhaled Oxygen Concentration - - Weight 126.3 kg (278 lb 6.4 oz) 020 10:40 AM FRUIT PRESS OPERATOR Height 171.5 cm (5' 7.5) 12/09/2019 10 :40 AM FRUIT PRESS OPERATOR Body Mass Index 42.96 12/09/2019 10:40 AM FRUIT PRESS OPERATOR Plan of Treatment Not on file Insurance [facility] [id number] Care Teams Hardware Developer Relationship Specialty Start Date End Date Vivien Geronimo PA [address] [facility] [address] [place] [address] PCP - General Internal Medicine 09/09/19
--- OUTSIDE RECORDS SUMMARY | 2025-05-07 02:50 | XMS_ITS | Clinical Summary ---
Author Organization [facility] Address [address] [place] [id number] Care Team Providers Care Decorator Street And Building Name Role Phone Unavailable Primary Care Provider [...] of 3 - 19+ 3-dose series) 2014 HPV Vaccines (1 - 3-dose SCD M series) 2022 COVID-19 Vaccine ( - 2023-2 5 season) 2024 Meningococcal B Vaccine Aged Out No l [...]
--- OUTSIDE RECORDS SUMMARY | 2025-05-07 02:50 | XMS_ITS | Referral Summary ---
Author Organization [facility] [address] [facility] Address [address] [place] [address] Care Team Providers Care Executive Officer Name Role Phone Vivien Geronimo Primary Care Provider +1- [phone] Allergies Active Allergy Reactions Criticality Noted Date Comments Ibuprofen Hives Medium 12/09/2019 Medications No known medications Active Problems Problem Noted Date Diagnosed Date BMI 40.0-44.9, adult 12/09/2019 Assessment & Plan (12/09/2019 10:44 AM ASSISTANT ENGINEER): Obesity is unchanged. Discussed the patient's BMI. The BMI is above average. BMI management plan is completed. BMI Follow-up includes: nutrition counseling, exercise counseling and education provided. Morbid obesity 12/09/2019 Assessment & Plan (12/09/2019 10:44 AM ASSISTANT ENGINEER): Obesity is unchanged. Discussed the patient's BMI. The BMI is above average. BMI management plan is completed. BMI Follow-up includes: nutrition counseling, exercise counseling and education provided. Positive depression screening 12/09/2019 Assessment & Plan (12/09/2019 8:45 PM ASSISTANT ENGINEER): Diagnosis is made today. See depression for plan Cigarette smoker 12/09/2019 Assessment & Plan (12/09/2019 8:46 PM ASSISTANT ENGINEER): Encouraged smoking cessation. Discussed 3 minutes. Reviewed options for assistance with cessation. Reviewed terminal worker sequela associated with smoking. Pt declines assistance at this time but may contact the office at anytime for further help as they desire. Annual physical exam 12/09/2019 Assessment & Plan (12/09/2019 8:47 PM ASSISTANT ENGINEER): Encouraged healthy lifestyle, good nutrition and exercise. Encouraged Calcium and Vitamin D and weight bearing exercise for bone health. Reviewed immunizations Reviewed age appropirate screenings. Need for Tdap vaccination 12/09/2019 Assessment & Plan (12/09/2019 8:46 PM ASSISTANT ENGINEER): Updated in office today Moderate episode of recurrent major depressive d isorder 12/09/2019 Assessment & Plan (12/09/2019 8:46 PM ASSISTANT ENGINEER): Discussed treatment options including medication, counseling and exercise/diet. He would like to get labs and monitor and discuss again at his next visit. No suicidal or homicidal thoughts. Seems more situational around unemployment and custody. Lipid screening 12/09/2019 Assessment & Plan (12/09/2019 8:47 PM ASSISTANT ENGINEER): Check labs Diabetes mellitus screening 12/09/2019 Assessment & Plan (12/09/2019 8:47 PM ASSISTANT ENGINEER): Check labs Other fatigue 12/09/2019 Assessment & Plan (12/09/2019 8:47 PM ASSISTANT ENGINEER): Probably multifactorial. 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 Last Filed Vital Signs Vital Sign Reading Time Taken Comments Blood Pressure 136/78 12/09/2019 10:40 AM ASSISTANT ENGINEER Pulse 90 12/09/2019 10:40 AM ASSISTANT ENGINEER Temperature 37 C (98.6 F) 12/09/2019 10:40 AM ASSISTANT ENGINEER Respiratory Rate - - Oxygen Saturation 97% 12/09/2019 10: 40 AM ASSISTANT ENGINEER Inhaled Oxygen Concentration - - Weight 126.3 kg (278 lb 6.4 oz) 020 10:40 AM ASSISTANT ENGINEER Height 171.5 cm (5' 7.5) 12/09/2019 10 :40 AM ASSISTANT ENGINEER Body Mass Index 42.96 12/09/2019 10:40 AM ASSISTANT ENGINEER Plan of Treatment Not on file Insurance [facility] [employer] [facility] Care Teams Executive Officer Relationship Specialty Start Date End Date Vivien Geronimo PA [address] [facility] [address] [place], [place] [id number] PCP - General Internal Medicine 09/09/19
--- OUTSIDE RECORDS SUMMARY | 2025-05-07 02:50 | XMS_ITS | Clinical Summary ---
Author Organization [facility] Address [address] [place] [address] Care Team Providers Care Typer Name Role Phone Unavailable Primary Care Provider Unavailabl e Source Comments [facility],non-owned Affiliates and Associated Physician Practices is amultiple site organization consisting of ambulatory clinics and hospital sitesin [place], [place], [place] and [place]. This disclosure is being madepursuant to the Care Everywhere program and may not contain all information available regarding this patient. Last updated 18.[facility] Social History Tobacco Use Types Packs/Day Years Used Date Smoking Tobacco: Never Assessed Sex and Gender Information Value Date Recorded Sex Assigned at Not on file Legal Sex Male 5:36 AM PERSONAL LINES SALES REP Gender Identity Not on file Sexual Orientation Not on file Plan of Treatment Health Maintenance Due Date Last Done Comments HIV SCREENING 2010 HEPATITIS C SCREENING 06/14/2013 DTAP/TDAP/TD VACCINES (1 - Tdap) 2014 HEPATITIS B VACCINE (1 of 3 - 19+ 3-dose series) 2014 HPV VACCINE (1 - 3-dose SCDM series) 2022 COVID-19 VACCINE (1 - 2023-2 5 season) [...]
--- OUTSIDE RECORDS SUMMARY | 2025-05-07 03:22 | XMS_ITS | Clinical Summary ---
Author Organization [facility] [address] [facility] Address [address] [place] [address] Care Team Providers Care Slice Plug Cutter Operator Helper Name Role Phone Vivien Geronimo Primary Care Provider +1- [phone] Allergies Active Allergy Reactions Criticality Noted Date Comments Ibuprofen Hives Medium 12/09/2019 Medications No known medications Active Problems Problem Noted Date Diagnosed Date BMI 40.0-44.9, adult 12/09/2019 Assessment & Plan (12/09/2019 10:44 AM SLUBBER RUNNER): Obesity is unchanged. Discussed the patient's BMI. The BMI is above average. BMI management plan is completed. BMI Follow-up includes: nutrition counseling, exercise counseling and education provided. Morbid obesity 12/09/2019 Assessment & Plan (12/09/2019 10:44 AM SLUBBER RUNNER): Obesity is unchanged. Discussed the patient's BMI. The BMI is above average. BMI management plan is completed. BMI Follow-up includes: nutrition counseling, exercise counseling and education provided. Positive depression screening 12/09/2019 Assessment & Plan (12/09/2019 8:45 PM SLUBBER RUNNER): Diagnosis is made today. See depression for plan Cigarette smoker 12/09/2019 Assessment & Plan (12/09/2019 8:46 PM SLUBBER RUNNER): Encouraged smoking cessation. Discussed 3 minutes. Reviewed options for assistance with cessation. Reviewed enrollment processor sequela associated with smoking. Pt declines assistance at this time but may contact the office at anytime for further help as they desire. Annual physical exam 12/09/2019 Assessment & Plan (12/09/2019 8:47 PM SLUBBER RUNNER): Encouraged healthy lifestyle, good nutrition and exercise. Encouraged Calcium and Vitamin D and weight bearing exercise for bone health. Reviewed immunizations Reviewed age appropirate screenings. Need for Tdap vaccination 12/09/2019 Assessment & Plan (12/09/2019 8:46 PM SLUBBER RUNNER): Updated in office today Moderate episode of recurrent major depressive d isorder 12/09/2019 Assessment & Plan (12/09/2019 8:46 PM SLUBBER RUNNER): Discussed treatment options including medication, counseling and exercise/diet. He would like to get labs and monitor and discuss again at his next visit. No suicidal or homicidal thoughts. Seems more situational around unemployment and custody. Lipid screening 12/09/2019 Assessment & Plan (12/09/2019 8:47 PM SLUBBER RUNNER): Check labs Diabetes mellitus screening 12/09/2019 Assessment & Plan (12/09/2019 8:47 PM SLUBBER RUNNER): Check labs Other fatigue 12/09/2019 Assessment & Plan (12/09/2019 8:47 PM SLUBBER RUNNER): Probably multifactorial. 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 Not on fi le Not on file Obstetrics History Last Filed Vital Signs Vital Sign Reading Time Taken Comments Blood Pressure 136/78 12/09/2019 10:40 AM SLUBBER RUNNER Pulse 90 12/09/2019 10:40 AM SLUBBER RUNNER Temperature 37 C (98.6 F) 12/09/2019 10:40 AM SLUBBER RUNNER Respiratory Rate - - Oxygen Saturation 97% 12/09/2019 10: 40 AM SLUBBER RUNNER Inhaled Oxygen Concentration - - Weight 126.3 kg (278 lb 6.4 oz) 020 10:40 AM SLUBBER RUNNER Height 171.5 cm (5' 7.5) 12/09/2019 10 :40 AM SLUBBER RUNNER Body Mass Index 42.96 12/09/2019 10:40 AM SLUBBER RUNNER Plan of Treatment Not on file Insurance [facility] [place] [id number] Care Teams Slice Plug Cutter Operator Helper Relationship Specialty Start Date End Date Vivien Geronimo PA [address] [facility] [address] [place] [address] PCP - General Internal Medicine 09/09/19
--- OUTSIDE RECORDS SUMMARY | 2025-05-07 03:22 | XMS_ITS | Clinical Summary ---
Author Organization [facility] Address [address] [place] [address] Care Team Providers Care Darkroom Worker Name Role Phone Unavailable Primary Care Provider [...]
--- OUTSIDE RECORDS SUMMARY | 2025-05-07 03:22 | XMS_ITS | Clinical Summary ---
Author Organization [facility] Address [address] [place] [address] Care Team Providers Care Security Sales Consultant Name Role Phone Unavailable Primary Care Provider Unavailabl e Source Comments [facility],non-owned Affiliates and Associated Physician Practices is amultiple site organization consisting of ambulatory clinics and hospital sitesin [place], [place], [place] and [place]. This disclosure is being madepursuant to the Care Everywhere program and may not contain all information available regarding this patient. Last updated 18.[facility] Social History Tobacco Use Types Packs/Day Years Used Date Smoking Tobacco: Never Assessed Sex and Gender Information Value Date Recorded Sex Assigned at Not on file Legal Sex Male 5:36 AM WEALTH MANAGEMENT ADVISOR Gender Identity Not on file Sexual Orientation [...]
--- OUTSIDE RECORDS SUMMARY | 2025-05-07 03:22 | XMS_ITS | Referral Summary ---
Author Organization [facility] [facility] Address [address] [place] [address] Care Team Providers Care Dials Supervisor Name Role Phone Vivien Geronimo Primary Care Provider [phone] Allergies Active Allergy Reactions Criticality Noted Date Comments Ibuprofen Hives Medium 12/09/2019 Medications No known medications Active Problems Problem Noted Date Diagnosed Date BMI 40.0-44.9, adult 12/09/2019 Assessment & Plan (12/09/2019 10:44 AM CRACKLING PRESS OPERATOR): Obesity is unchanged. Discussed the patient's BMI. The BMI is above average. BMI management plan is completed. BMI Follow-up includes: nutrition counseling, exercise counseling and education provided. Morbid obesity 12/09/2019 Assessment & Plan (12/09/2019 10:44 AM CRACKLING PRESS OPERATOR): Obesity is unchanged. Discussed the patient's BMI. The BMI is above average. BMI management plan is completed. BMI Follow-up includes: nutrition counseling, exercise counseling and education provided. Positive depression screening 12/09/2019 Assessment & Plan (12/09/2019 8:45 PM CRACKLING PRESS OPERATOR): Diagnosis is made today. See depression for plan Cigarette smoker 12/09/2019 Assessment & Plan (12/09/2019 8:46 PM CRACKLING PRESS OPERATOR): Encouraged smoking cessation. Discussed 3 minutes. Reviewed options for assistance with cessation. Reviewed terminal operations manager sequela associated with smoking. Pt declines assistance at this time but may contact the office at anytime for further help as they desire. Annual physical exam 12/09/2019 Assessment & Plan (12/09/2019 8:47 PM CRACKLING PRESS OPERATOR): Encouraged healthy lifestyle, good nutrition and exercise. Encouraged Calcium and Vitamin D and weight bearing exercise for bone health. Reviewed immunizations Reviewed age appropirate screenings. Need for Tdap vaccination 12/09/2019 Assessment & Plan (12/09/2019 8:46 PM CRACKLING PRESS OPERATOR): Updated in office today Moderate episode of recurrent major depressive d isorder 12/09/2019 Assessment & Plan (12/09/2019 8:46 PM CRACKLING PRESS OPERATOR): Discussed treatment options including medication, counseling and exercise/diet. He would like to get labs and monitor and discuss again at his next visit. No suicidal or homicidal thoughts. Seems more situational around unemployment and custody. Lipid screening 12/09/2019 Assessment & Plan (12/09/2019 8:47 PM CRACKLING PRESS OPERATOR): Check labs Diabetes mellitus screening 12/09/2019 Assessment & Plan (12/09/2019 8:47 PM CRACKLING PRESS OPERATOR): Check labs Other fatigue 12/09/2019 Assessment & Plan (12/09/2019 8:47 PM CRACKLING PRESS OPERATOR): Probably multifactorial. Check labs and [...] on file Legal Sex Male 8:23 AM CRACKLING PRESS OPERATOR Gender Identity Not on file Sexual Orientation Not on file Occupation Industry Job Start Date Job End Date [employer] Not on file Not on fi le Not on file Last Filed Vital Signs Vital Sign Reading Time Taken Comments Blood Pressure 136/78 12/09/2019 10:40 AM CRACKLING PRESS OPERATOR Pulse 90 12/09/2019 10:40 AM CRACKLING PRESS OPERATOR Temperature 37 C (98.6 F) 12/09/2019 10:40 AM CRACKLING PRESS OPERATOR Respiratory Rate - - Oxygen Saturation 97% 12/09/2019 10: 40 AM CRACKLING PRESS OPERATOR Inhaled Oxygen Concentration - - Weight 126.3 kg (278 lb 6.4 oz) 020 10:40 AM CRACKLING PRESS OPERATOR Height 171.5 cm (5' 7.5) 12/09/2019 10 :40 AM CRACKLING PRESS OPERATOR Body Mass Index 42.96 12/09/2019 10:40 AM CRACKLING PRESS OPERATOR Plan of Treatment Not on file Insurance [facility] I[employer]Systems [facility] Care Teams Dials Supervisor Relationship Specialty Start Date End Date Vivien Geronimo PA [address] [facility] [address] [place], [place] [id number] PCP - General Internal Medicine 09/09/19
[2025-05-07 03:25] LABS: Hematocrit 49.8 % (42.0-52.0); Hemoglobin 17.7 g/dL (14.0-18.0); Immature Granulocyte Percent A 0.2 % (0-0.5); Lymphocytes Absolute Auto 1.17 K/mm3 (0.9-3.2); Mean Corpuscular HGB Conc 35.5 g/dl (32-36); Mean Corpuscular Hemoglobin 29.0 pg (26-34); Mean Corpuscular Volume 81.6 fl (80-100); Nucleated Red Blood Cells Absolute Auto 0.000 K/mm3 (0.0-0.012); Nucleated Red Blood Cells Perc 0.0 % (0.0-0.2); Platelet Count Result 290 k/mm3 (150-375); Red Blood Count 6.10 M/mm3 (4.6-6.20); White Blood Count 9.3 K/mm3 (4.5-10.0)
[2025-05-07] MEDS: MAG HYDROX/AL HYDROX/SIMETH 30 ML UDC PO (03:29)
[2025-05-07] MEDS: FAMOTIDINE 20 MG/2 ML VIAL IV PUSH (03:29)
[2025-05-07 03:31] LABS: Add Urine Microscopic? YES; Appearance Urine Clear (Clear); Glucose Urine UA Negative (Negative); Leukocyte Esterase Ur Negative LEU/UL (Negative); Nitrate Urine Negative (Negative); Non Pathogenic Casts 0-2; Specific Grav Ur 1.035 (1.001-1.035)
[2025-05-07] MEDS: SODIUM CHLORIDE 0.9% IV 1,000 ML 999 ML IV CONT (03:31)
[2025-05-07] MEDS: HALOPERIDOL LACTATE 5 MG/ML VIAL IM (03:38)
[2025-05-07 03:48] LABS: Cannabinoid Screen Urine Positive (Negative)
--- NOTE | 2025-05-07 03:52 | ED_ITS ---
HPI - General Adult General Chief complaint: Nausea/Vomiting/Diarrhea Stated complaint: vomiting Time Seen by Provider: 05/07/25 03:17 History of Present Illness HPI narrative: This is a 29 male with history of fentanyl use marijuana use presenting ED for nausea and vomiting. Patient has been vomiting for last 2 days. It is associated with epigastric burning pain. He feels that there may be blood in the vomit. Patient thinks that he use some bad fentanyl or is possibly going through final withdrawal. This is the patient's 6th visit for an identical complaint since January of 2025. Related Data Allergies Allergy/AdvReac Type Severity Reaction Status Date / Time No Known Allergies Allergy Verified 01/15/25 21:15 [facility] Past Medical History Medical History Opiate dependence Marijuana use Asthma Social History Social History Smoking status: Current every day smoker Tobacco type: cigarettes Substance use: current Substance use type: marijuana and opiates Gender identity (if verbalized by the patient): Male Sexual Orientation (if Verbalized by the Patient): Straight or Heterosexual Exam 2 Narrative: APPEARANCE: No apparent distress. Head: atraumatic. EYES: EOMI, NOSE: Atraumatic NECK: Trachea midline RESPIRATORY: No increased rate of breathing clear to auscultation CARDIOVASCULAR: RRR, no peripheral edema ABDOMINAL: Epigastric tenderness without guarding or rebound MUSCULOSKELETAl: No obvious deformities NEURO: Alert. Moving 4/4 extremities SKIN:: Warm, dry. Normal color PSYCHIATRIC: Normal affect Course Vital Signs Vital signs: Vital Signs Temperature 98 F 05/07/25 02:53 Pulse Rate 89 05/07/25 02:53 Respiratory Rate 16 05/07/25 02:53 Blood Pressure 159/93 H 05/07/25 02:53 Pulse Oximetry 100 05/07/25 02:53 Oxygen Delivery Room Air 05/07/25 02:53 Temperature 98 F 05/07/25 02:53 Pulse Rate 89 05/07/25 02:53 Respiratory Rate 16 05/07/25 02:53 Blood Pressure 159/93 H 05/07/25 02:53 Pulse Oximetry 100 05/07/25 02:53 Oxygen Delivery Room Air 05/07/25 02:53 Medical Decision Making MDM Narrative Medical decision making narrative: -Course: 29-year-old male history of fentanyl and marijuana use presenting for epigastric pain nausea and vomiting. He has been seen 6 times for this over the last several months. Patient is on is concerned that he is vomiting blood but his hemoglobin is stable at 17.7. Patient given symptomatic treatment with improvement. Laboratory studies showed a potassium 2.6 which is likely due to GI losses. Patient given IV fluids for dehydration. Potassium is repleted orally over 2 doses. Re-evaluation patient is feeling better and is now tolerating p.o.. He will be discharged follow-up with primary care physician. Given return precautions. -DDX includes but is not limited to: Cannabinoid hyperemesis, gastritis, peptic ulcer disease, fentanyl withdrawal -Dx tests considered but not ordered: CT abdomen pelvis -patient was seen multiple times for identical presentations. Symptoms most likely due to substance use versus gastritis which are not be revealed on a CT scan. Vital Signs Vital Signs: Vital Signs Temperature 98 F 05/07/25 02:53 Pulse Rate 89 05/07/25 02:53 Respiratory Rate 16 05/07/25 02:53 Blood Pressure 159/93 H 05/07/25 02:53 Pulse Oximetry 100 05/07/25 02:53 Oxygen Delivery Room Air 05/07/25 02:53 Temperature 98 F 05/07/25 02:53 Pulse Rate 89 05/07/25 02:53 Respiratory Rate 16 05/07/25 02:53 Blood Pressure 159/93 H 05/07/25 02:53 Pulse Oximetry 100 05/07/25 02:53 Oxygen Delivery Room Air 05/07/25 02:53 Lab Data 05/07/25 03:17 05/07/25 03:17 Labs: Lab Results 05/07/25 05/07/25 05/07/25 Range/Units 03:17 03:17 03:17 WBC 9.3 (4.5-10.0) K/mm3 RBC 6.10 (4.6-6.20) M/mm3 Hgb 17.7 (14.0-18.0) g/dL Hct 49.8 (42.0-52.0) % MCV 81.6 (80-100) fl MCH 29.0 (26-34) pg MCHC 35.5 (32-36) g/dl RDW 12.9 (11.5-14.5) % Plt Count 290 (150-375) k/mm3 MPV 10.2 (7.4-10.4) fl Immature Gran % (Auto) 0.2 (0-0.5) % Neut % (Auto) 73.2 H (45.5-73.1) % Lymph % (Auto) 12.6 L (18.3-44.2) % Brooke % (Auto) 13.4 H (2.6-8.5) % Eos % (Auto) 0.0 (0-4.4) % Baso % (Auto) 0.6 (0.2-1.2) % Lymph # (Auto) 1.17 (0.9-3.2) K/mm3 Brooke # (Auto) 1.2 H (0.1-0.6) K/mm3 Eos # (Auto) 0.0 (0-0.3) K/mm3 Baso # (Auto) 0.1 (0.0-0.1) K/mm3 Abs Immat Gran (auto) 0.02 (0.00-0.031) K/mm3 Absolute Neuts (auto) 6.8 H (1.3-6.7) K/mm3 Absolute Nucleated RBC 0.000 (0.0-0.012) K/mm3 Nucleated RBC % 0.0 (0.0-0.2) % Sodium Pending Cancelled Potassium Pending Cancelled Chloride Pending Carbon Dioxide Anion Gap BUN Creatinine Estim Creat Clear Calc Estimated GFR Glucose Calcium Total Bilirubin AST ALT Alkaline Phosphatase Total Protein Albumin Lipase Urine Color (Yellow) Urine Appearance (Clear) Urine pH (5.0-9.0) Ur Specific [place] (1.001-1.035) Urine Protein (Negative) mg/dL Urine Glucose (UA) (Negative) mg/dL Urine Ketones (Negative) mg/dL Ur Blood (Man) (Negative) Urine Nitrate (Negative) Urine Bilirubin (Negative) Urine Urobilinogen (<2.0) mg/dL Leukocyte Esterase Rfl (Negative) JOSEP/UL Urine RBC (0-2) /hpf Urine WBC (0-3) /hpf Ur Squamous Epith Cells (Few) /hpf Urine Bacteria /hpf Urine Casts Urine Opiates Screen (Negative) Urine Methadone Screen (Negative) Ur Barbiturates Screen (Negative) Ur Phencyclidine Scrn (Negative) Ur Amphetamine Screen (Negative) U Benzodiazepines Scrn (Negative) Urine Cocaine Screen (Negative) U Cannabinoids Screen (Negative) 05/07/25 05/07/25 05/07/25 Range/Units 03:17 03:17 03:17 WBC (4.5-10.0) K/mm3 RBC (4.6-6.20) M/mm3 Hgb (14.0-18.0) g/dL Hct (42.0-52.0) % MCV (80-100) fl MCH (26-34) pg MCHC (32-36) g/dl RDW (11.5-14.5) % Plt Count (150-375) k/mm3 MPV (7.4-10.4) fl Immature Gran % (Auto) (0-0.5) % Neut % (Auto) (45.5-73.1) % Lymph % (Auto) (18.3-44.2) % Brooke % (Auto) (2.6-8.5) % Eos % (Auto) (0-4.4) % Baso % (Auto) (0.2-1.2) % Lymph # (Auto) (0.9-3.2) K/mm3 Brooke # (Auto) (0.1-0.6) K/mm3 Eos # (Auto) (0-0.3) K/mm3 Baso # (Auto) (0.0-0.1) K/mm3 Abs Immat Gran (auto) (0.00-0.031) K/mm3 Absolute Neuts (auto) (1.3-6.7) K/mm3 Absolute Nucleated RBC (0.0-0.012) K/mm3 Nucleated RBC % (0.0-0.2) % Sodium Potassium Chloride Cancelled Carbon Dioxide Pending Cancelled Anion Gap Pending Cancelled BUN Pending Creatinine Estim Creat Clear Calc Estimated GFR Glucose Calcium Total Bilirubin AST ALT Alkaline Phosphatase Total Protein Albumin Lipase Urine Color (Yellow) Urine Appearance (Clear) Urine pH (5.0-9.0) Ur Specific [place] (1.001-1.035) Urine Protein (Negative) mg/dL Urine Glucose (UA) (Negative) mg/dL Urine Ketones (Negative) mg/dL Ur Blood (Man) (Negative) Urine Nitrate (Negative) Urine Bilirubin (Negative) Urine Urobilinogen (<2.0) mg/dL Leukocyte Esterase Rfl (Negative) JOSEP/UL Urine RBC (0-2) /hpf Urine WBC (0-3) /hpf Ur Squamous Epith Cells (Few) /hpf Urine Bacteria /hpf Urine Casts Urine Opiates Screen (Negative) Urine Methadone Screen (Negative) Ur Barbiturates Screen (Negative) Ur Phencyclidine Scrn (Negative) Ur Amphetamine Screen (Negative) U Benzodiazepines Scrn (Negative) Urine Cocaine Screen (Negative) U Cannabinoids Screen (Negative) 05/07/25 05/07/25 05/07/25 Range/Units 03:17 03:17 03:17 WBC (4.5-10.0) K/mm3 RBC (4.6-6.20) M/mm3 Hgb (14.0-18.0) g/dL Hct (42.0-52.0) % MCV (80-100) fl MCH (26-34) pg MCHC (32-36) g/dl RDW (11.5-14.5) % Plt Count (150-375) k/mm3 MPV (7.4-10.4) fl Immature Gran % (Auto) (0-0.5) % Neut % (Auto) (45.5-73.1) % Lymph % (Auto) (18.3-44.2) % Brooke % (Auto) (2.6-8.5) % Eos % (Auto) (0-4.4) % Baso % (Auto) (0.2-1.2) % Lymph # (Auto) (0.9-3.2) K/mm3 Brooke # (Auto) (0.1-0.6) K/mm3 Eos # (Auto) (0-0.3) K/mm3 Baso # (Auto) (0.0-0.1) K/mm3 Abs Immat Gran (auto) (0.00-0.031) K/mm3 Absolute Neuts (auto) (1.3-6.7) K/mm3 Absolute Nucleated RBC (0.0-0.012) K/mm3 Nucleated RBC % (0.0-0.2) % Sodium Potassium Chloride Carbon Dioxide Anion Gap BUN Cancelled Creatinine Pending Cancelled Estim Creat Clear Calc Pending Cancelled Estimated GFR Pending Glucose Calcium Total Bilirubin AST ALT Alkaline Phosphatase Total Protein Albumin Lipase Urine Color (Yellow) Urine Appearance (Clear) Urine pH (5.0-9.0) Ur Specific [place] (1.001-1.035) Urine Protein (Negative) mg/dL Urine Glucose (UA) (Negative) mg/dL Urine Ketones (Negative) mg/dL Ur Blood (Man) (Negative) Urine Nitrate (Negative) Urine Bilirubin (Negative) Urine Urobilinogen (<2.0) mg/dL Leukocyte Esterase Rfl (Negative) JOSEP/UL Urine RBC (0-2) /hpf Urine WBC (0-3) /hpf Ur Squamous Epith Cells (Few) /hpf Urine Bacteria /hpf Urine Casts Urine Opiates Screen (Negative) Urine Methadone Screen (Negative) Ur Barbiturates Screen (Negative) Ur Phencyclidine Scrn (Negative) Ur Amphetamine Screen (Negative) U Benzodiazepines Scrn (Negative) Urine Cocaine Screen (Negative) U Cannabinoids Screen (Negative) 05/07/25 05/07/25 05/07/25 Range/Units 03:17 03:17 03:17 WBC (4.5-10.0) K/mm3 RBC (4.6-6.20) M/mm3 Hgb (14.0-18.0) g/dL Hct (42.0-52.0) % MCV (80-100) fl MCH (26-34) pg MCHC (32-36) g/dl RDW (11.5-14.5) % Plt Count (150-375) k/mm3 MPV (7.4-10.4) fl Immature Gran % (Auto) (0-0.5) % Neut % (Auto) (45.5-73.1) % Lymph % (Auto) (18.3-44.2) % Brooke % (Auto) (2.6-8.5) % Eos % (Auto) (0-4.4) % Baso % (Auto) (0.2-1.2) % Lymph # (Auto) (0.9-3.2) K/mm3 Brooke # (Auto) (0.1-0.6) K/mm3 Eos # (Auto) (0-0.3) K/mm3 Baso # (Auto) (0.0-0.1) K/mm3 Abs Immat Gran (auto) (0.00-0.031) K/mm3 Absolute Neuts (auto) (1.3-6.7) K/mm3 Absolute Nucleated RBC (0.0-0.012) K/mm3 Nucleated RBC % (0.0-0.2) % Sodium Potassium Chloride Carbon Dioxide Anion Gap BUN Creatinine Estim Creat Clear Calc Estimated GFR Cancelled Glucose Pending Cancelled Calcium Pending Cancelled Total Bilirubin Pending AST ALT Alkaline Phosphatase Total Protein Albumin Lipase Urine Color (Yellow) Urine Appearance (Clear) Urine pH (5.0-9.0) Ur Specific [place] (1.001-1.035) Urine Protein (Negative) mg/dL Urine Glucose (UA) (Negative) mg/dL Urine Ketones (Negative) mg/dL Ur Blood (Man) (Negative) Urine Nitrate (Negative) Urine Bilirubin (Negative) Urine Urobilinogen (<2.0) mg/dL Leukocyte Esterase Rfl (Negative) JOSEP/UL Urine RBC (0-2) /hpf Urine WBC (0-3) /hpf Ur Squamous Epith Cells (Few) /hpf Urine Bacteria /hpf Urine Casts Urine Opiates Screen (Negative) Urine Methadone Screen (Negative) Ur Barbiturates Screen (Negative) Ur Phencyclidine Scrn (Negative) Ur Amphetamine Screen (Negative) U Benzodiazepines Scrn (Negative) Urine Cocaine Screen (Negative) U Cannabinoids Screen (Negative) 05/07/25 05/07/25 05/07/25 Range/Units 03:17 03:17 03:17 WBC (4.5-10.0) K/mm3 RBC (4.6-6.20) M/mm3 Hgb (14.0-18.0) g/dL Hct (42.0-52.0) % MCV (80-100) fl MCH (26-34) pg MCHC (32-36) g/dl RDW (11.5-14.5) % Plt Count (150-375) k/mm3 MPV (7.4-10.4) fl Immature Gran % (Auto) (0-0.5) % Neut % (Auto) (45.5-73.1) % Lymph % (Auto) (18.3-44.2) % Brooke % (Auto) (2.6-8.5) % Eos % (Auto) (0-4.4) % Baso % (Auto) (0.2-1.2) % Lymph # (Auto) (0.9-3.2) K/mm3 Brooke # (Auto) (0.1-0.6) K/mm3 Eos # (Auto) (0-0.3) K/mm3 Baso # (Auto) (0.0-0.1) K/mm3 Abs Immat Gran (auto) (0.00-0.031) K/mm3 Absolute Neuts (auto) (1.3-6.7) K/mm3 Absolute Nucleated RBC (0.0-0.012) K/mm3 Nucleated RBC % (0.0-0.2) % Sodium Potassium Chloride Carbon Dioxide Anion Gap BUN Creatinine Estim Creat Clear Calc Estimated GFR Glucose Calcium Total Bilirubin Cancelled AST Pending Cancelled ALT Pending Cancelled Alkaline Phosphatase Pending Total Protein Albumin Lipase Urine Color (Yellow) Urine Appearance (Clear) Urine pH (5.0-9.0) Ur Specific [place] (1.001-1.035) Urine Protein (Negative) mg/dL Urine Glucose (UA) (Negative) mg/dL Urine Ketones (Negative) mg/dL Ur Blood (Man) (Negative) Urine Nitrate (Negative) Urine Bilirubin (Negative) Urine Urobilinogen (<2.0) mg/dL Leukocyte Esterase Rfl (Negative) JOSEP/UL Urine RBC (0-2) /hpf Urine WBC (0-3) /hpf Ur Squamous Epith Cells (Few) /hpf Urine Bacteria /hpf Urine Casts Urine Opiates Screen (Negative) Urine Methadone Screen (Negative) Ur Barbiturates Screen (Negative) Ur Phencyclidine Scrn (Negative) Ur Amphetamine Screen (Negative) U Benzodiazepines Scrn (Negative) Urine Cocaine Screen (Negative) U Cannabinoids Screen (Negative) 05/07/25 05/07/25 05/07/25 Range/Units 03:17 03:17 03:17 WBC (4.5-10.0) K/mm3 RBC (4.6-6.20) M/mm3 Hgb (14.0-18.0) g/dL Hct (42.0-52.0) % MCV (80-100) fl MCH (26-34) pg MCHC (32-36) g/dl RDW (11.5-14.5) % Plt Count (150-375) k/mm3 MPV (7.4-10.4) fl Immature Gran % (Auto) (0-0.5) % Neut % (Auto) (45.5-73.1) % Lymph % (Auto) (18.3-44.2) % Brooke % (Auto) (2.6-8.5) % Eos % (Auto) (0-4.4) % Baso % (Auto) (0.2-1.2) % Lymph # (Auto) (0.9-3.2) K/mm3 Brooke # (Auto) (0.1-0.6) K/mm3 Eos # (Auto) (0-0.3) K/mm3 Baso # (Auto) (0.0-0.1) K/mm3 Abs Immat Gran (auto) (0.00-0.031) K/mm3 Absolute Neuts (auto) (1.3-6.7) K/mm3 Absolute Nucleated RBC (0.0-0.012) K/mm3 Nucleated RBC % (0.0-0.2) % Sodium Potassium Chloride Carbon Dioxide Anion Gap BUN Creatinine Estim Creat Clear Calc Estimated GFR Glucose Calcium Total Bilirubin AST ALT Alkaline Phosphatase Cancelled Total Protein Pending Cancelled Albumin Pending Cancelled Lipase Cancelled Urine Color Dark yellow (Yellow) Urine Appearance Clear (Clear) Urine pH 5.5 (5.0-9.0) Ur Specific [place] 1.035 (1.001-1.035) Urine Protein 2+ H (Negative) mg/dL Urine Glucose (UA) Negative (Negative) mg/dL Urine Ketones 4+ H (Negative) mg/dL Ur Blood (Man) Negative (Negative) Urine Nitrate Negative (Negative) Urine Bilirubin 2+ H (Negative) Urine Urobilinogen 1.0 (<2.0) mg/dL Leukocyte Esterase Rfl Negative (Negative) JOSEP/UL Urine RBC 0-2 (0-2) /hpf Urine WBC 0-5 (0-3) /hpf Ur Squamous Epith Cells None seen (Few) /hpf Urine Bacteria None seen /hpf Urine Casts 0-2 Urine Opiates Screen Positive A (Negative) Urine Methadone Screen Negative (Negative) Ur Barbiturates Screen Negative (Negative) Ur Phencyclidine Scrn Negative (Negative) Ur Amphetamine Screen Negative (Negative) U Benzodiazepines Scrn Negative (Negative) Urine Cocaine Screen Negative (Negative) U Cannabinoids Screen Positive A (Negative) Discharge Plan Discharge Clinical Impression: Nausea & vomiting Patient Disposition: Home Condition: Stable Instructions: Antibiotic Form, Acute Nausea and Vomiting (ED) Additional Instructions: Please use Zofran as needed for nausea. Please follow-up with your primary physician further management. Return if you develop intractable nausea,vomiting, severe abdominal pain or fevers. Marijuana and fentanyl may both be contributing to her symptoms and I recommend you seek help with your substance use disorder. Patient Language: Divehi Prescriptions: New ondansetron 4 mg tablet,disintegrating 4 mg PO Q8H PRN (Reason: nausea and vomiting) Qty: 30 0RF famotidine [Pepcid] 20 mg tablet 20 mg PO BID 42 Days Qty: 84 0RF No Action amoxicillin-pot clavulanate 875-125 mg tablet 1 tablet PO Q12H Qty: 20 0RF amoxicillin-pot clavulanate 875-125 mg tablet 1 tablet PO Q12H Qty: 20 0RF ondansetron 4 mg tablet,disintegrating 4 mg PO Q8H PRN (Reason: nausea and vomiting) Qty: 10 0RF dicyclomine 20 mg tablet 20 mg PO QID PRN (Reason: abdominal discomfort) Qty: 20 0RF ondansetron 4 mg tablet,disintegrating 4 mg PO Q8H PRN (Reason: nausea and vomiting) Qty: 10 0RF ondansetron 4 mg tablet,disintegrating 4 mg PO Q8H PRN (Reason: nausea and vomiting) Qty: 7 0RF Follow-up/Referrals: PHYSICIAN,TELEGRAPH PRINTER MECHANIC [Primary Care Provider] -
[2025-05-07] MEDS: LACTATED RINGERS 2,000 ML 150 ML IV CONT (04:08)
[2025-05-07] MEDS: ONDANSETRON INJ 4 MG/2 ML VIAL IV PUSH (04:15)
[2025-05-07 04:25] LABS: Lipase 16 U/L (23-300)
[2025-05-07 04:26] LABS: Alanine Aminotransferase 34 U/L (6-50); Albumin Level 4.1 g/dL (3.5-5.1); Alkaline Phosphatase 58 U/L (38-126); Anion Gap 12 mmol/L (4-12); Aspartate Amino Transferase 33 U/L (17-59); Bilirubin,Total 0.8 mg/dL (0.2-1.3); Blood Urea Nitrogen 6 mg/dL (9-20); Calcium 8.9 mg/dL (8.4-10.2); Carbon Dioxide 24 mmol/L (22-30); Chloride 103 mmol/L (98-107); Estimated CRCL calculation 141 ml/min; Estimated Glomerular Filt Rate > 60; Glucose 111 mg/dL (65-110); Potassium 2.9 mmol/L (3.4-5.0); Sodium 139 mmol/L (137-145); Total Protein 7.2 g/dL (6.3-8.2)
[2025-05-07] MEDS: POTASSIUM CHLORIDE 20 MEQ PACKET (FOR LIQUID) 40 MEQ PO ×2 (04:50→06:02)
[2025-05-07] MEDS: PROCHLORPERAZINE EDISYLATE 10 MG/2 ML VIAL IM (04:50)
--- NOTE | 2025-05-07 05:04 | PC.NURSE ---
Per MD IV LR to be given 999ml/hr, read back and confirmed
== END 2025-05-07 06:30 | disposition home or self-care (01) ==
PROVIDERS: Emergency Provider Emergency Medicine
DX: R11.2 Nausea with vomiting, unspecified (principal); J45.909 Unspecified asthma, uncomplicated; F11.20 Opioid dependence, uncomplicated; F12.90 Cannabis use, unspecified, uncomplicated; F17.210 Nicotine dependence, cigarettes, uncomplicated
CPT/HCPCS: 36415; 80053; 80307; 81001; 82948; 83690; 85025; 96361; 96372; 96374; 96375; 99284; A9270; J0780; J1200; J1630; J2405; J7030; J7120